=== PATIENT | female | born 1945 | race Caucasian/White ===

== ENCOUNTER 2019-03-13 07:51 | Day surgery (SDC) | payer MEDICARE ==
[2019-03-13] MEDS ORDERED: Sodium Chloride 0.9% 1,000 ML IV SCH (08:30)
[2019-03-13] MEDS ORDERED: fentaNYL 100 MCG/2 ML SDV ONE ×2 (09:30→09:33)
[2019-03-13] MEDS ORDERED: Midazolam 1 MG/ML 2 ML SDV ONE (09:31)
[2019-03-13] MEDS ORDERED: Propofol 200 MG/20 ML SDV ONE ×2 (09:31→09:33)
--- NOTE | 2019-03-13 14:50 | OR ---
DATE OF PROCEDURE: 03/13/2019 SURGEON: Christian Hudson MD PROCEDURES: 1. EGD. 2. Colonoscopy. FINDINGS: 1. Normal EGD, except very mild gastritis. 2. Colon polyp, sigmoid colon polyp, approximately 5 mm, completely removed using snare. 3. Diverticulosis, very mild, limited to sigmoid colon. 4. No evidence of old or new blood. RISKS: Risks, benefits, alternatives, and limitations including, but not limited to infection, bleeding, and perforation were explained to the patient, who wished to proceed. PROCEDURE IN DETAIL: The patient was placed in left lateral decubitus position. The EGD scope was introduced and advanced atraumatically into the second part of the duodenum. No evidence of duodenitis or ulceration. The scope was then brought back in the stomach and retroflexed. No hiatal hernia. Gastritis would be described as very mild. No evidence of ulceration or abnormality. The GE junction was normal. The esophagus was normal. Digital rectal exam was performed next, which showed small external hemorrhoidal tag. The scope was then introduced and advanced atraumatically to the appendiceal orifice, which a photo was taken of this. The scope was brought back through the ascending, transverse, descending colon, and retroflexed. Within the sigmoid colon itself, there was an approximately 5 mm polyp. This was completely removed using snare. No abnormal bleeding was noted after this. The diverticulosis would be described as very mild, mostly limited to sigmoid colon, without evidence of diverticulitis or bleeding. No evidence of colitis. No old or new blood. No abnormalities on retroflexion. The patient tolerated the procedure well. Christian Hudson MD /[id number]
== END 2019-03-13 11:14 | disposition home or self-care (01) ==
LOC: JP.SDS 07:51
PROVIDERS: ATTEND Surgery
DX: D64.9 Anemia, unspecified (principal); D12.5 Benign neoplasm of sigmoid colon; K29.70 Gastritis, unspecified, without bleeding; K57.30 Diverticulosis of large intestine without perforation or abscess without bleeding
CPT/HCPCS: 43235; 45385; J2704; J3010; J7030; 88305; J2250

== ENCOUNTER 2020-03-21 14:27 | Emergency (ER) | payer MEDICARE ==
--- NOTE | 2020-03-21 15:39 | EDM.PDOC ---
ED HPI GENERAL MEDICAL PROBLEM - General Chief Complaint: ENT Problem Stated Complaint: PIECE OF CHICKEN STUCK IN THROAT Time Seen by Provider: 03/21/20 15:20 Source of Information: Reports: Patient, Family, RN Notes Reviewed History Limitations: Reports: No Limitations - History of Present Illness INITIAL COMMENTS - FREE TEXT/NARRATIVE: Tasia presents to the emergency room for complaints of food bolus that happened at 1230 today after eating a piece of chicken. She denies any other injury or trauma. She denies any SOB, difficulty breathing or other concerns. She denies fever, chills, nausea, vomiting or other concerns. Upon arrival to the emergency room and upon rooming, Tasia was provided Coca Cola to drink, food bolus resolved. - Related Data Allergies Allergy/AdvReac Type Severity Reaction Status Date / Time No Known Allergies Allergy Verified 03/21/20 14:53 Home Meds: Home Meds Levothyroxine Sodium [Synthroid] 100 mcg PO DAILY 01/23/19 [History] Losartan/Hydrochlorothiazide [Hyzaar 100-25 Tablet] 25 - 100 each PO DAILY 01/23/19 [History] carvediloL [Coreg] 6.25 mg PO BID 01/23/19 [History] Furosemide [Lasix] 1 tab PO DAILY PRN 03/21/20 [History] Past Medical History HEENT History: Reports: Impaired Vision Cardiovascular History: Reports: Hypertension Gastrointestinal History: Reports: Other (See Below) Other Gastrointestinal History: 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: , Spontaneous Musculoskeletal History: Reports: Arthritis, Other (See Below) Other Musculoskeletal History: RIGHT HIP PAIN Endocrine/Metabolic History: Reports: Hypothyroidism Other Endocrine/Metabolic History: TOOK A PILL TO DESTROY THYROID Hematologic History: Reports: Anemia - Infectious Disease History Infectious Disease History: Reports: Chicken Pox, Measles, Mumps - Past Surgical History GI Surgical History: Reports: Cholecystectomy, Colonoscopy, EGD Social & Family History - Family History Family Medical History: Noncontributory - Tobacco Use Tobacco Use Status *Q: Never Tobacco User - Caffeine Use Caffeine Use: Reports: Coffee ED ROS ENT - Review of Systems Review Of Systems: See Below Constitutional: Reports: No Symptoms HEENT: Reports: Other (chicken food bolus to throat, started at 1230 today. She reports this has happened 6 times in the past 6 months, but each time usually resolves at home. Today the chicken would not go down. ). Denies: Throat Pain Respiratory: Reports: No Symptoms Cardiovascular: Reports: No Symptoms : Reports: No Symptoms Musculoskeletal: Reports: No Symptoms Skin: Reports: No Symptoms Neurological: Reports: No Symptoms Psychiatric: Reports: No Symptoms Hematologic/Lymphatic: Reports: No Symptoms Immunologic: Reports: No Symptoms ED EXAM, ENT - Physical Exam Exam: See Below Exam Limited By: No Limitations General Appearance: Alert, WD/WN, No Apparent Distress Eye Exam: Bilateral Eye: Normal Inspection, PERRL Ears: Normal External Exam, Normal Canal, Hearing Grossly Normal, Normal TMs Nose: Normal Inspection, Normal Mucousa, No Blood Mouth/Throat: Normal Inspection, Normal Gums, Normal Lips, Normal Oropharynx, Other (chicken food bolus, resolved with sips of Coca cola. No pain to throat. Able to swallow water without any issues. ). No: Lip Swelling, Muffled Voice, Oral Ulcers, Peritonsillar Mass, Throat Pain, Throat Swelling, Tongue Swelling, Tonsillar Erythema, Tonsillar Exudates, Tonsillar Swelling, Uvular Deviation, Uvular Edema Head: Atraumatic, Normocephalic Neck: Normal Inspection, Supple, Non-Tender, Full Range of Motion. No: Lymphadenopathy (R), Lymphadenopathy (L), Thyromegaly Respiratory/Chest: No Respiratory Distress, Lungs Clear, Normal Breath Sounds, No Accessory Muscle Use, Chest Non-Tender. No: Crackles, Rales, Rhonchi, Wheezing Cardiovascular: Normal Peripheral Pulses, Regular Rate, Rhythm, No Edema, No Gallop, No Murmur, No Rub Back: Normal Inspection, Full Range of Motion. No: CVA Tenderness (R), CVA Tenderness (L) Extremities: Normal Inspection, Normal Range of Motion, Non-Tender, No Pedal Edema, Normal Capillary Refill Neurological: Alert, Oriented, Normal Cognition, Normal Gait, Normal Reflexes, No Motor/Sensory Deficits Psychiatric: Normal Affect, Normal Mood Skin: Warm, Dry, Intact, Normal Color, No Rash Lymphatic: No Adenopathy Course - Vital Signs Last Recorded V/S: Last Vital Signs Temp 36.3 C 03/21/20 15:00 Pulse 87 03/21/20 15:34 Resp 17 03/21/20 15:00 BP 185/94 H 03/21/20 15:34 Pulse Ox 96 03/21/20 15:00 - Re-Assessments/Exams Free Text/Narrative Re-Assessment/Exam: blood pressure elevated, reviewed with patient. She states she feels a little stressed. She denies headaches, change in vision or other concerns. Departure - Departure Time of Disposition: 15:36 Disposition: Home, Self-Care 01 Condition: Good Clinical Impression: Bolus impaction of digestive tract - Discharge Information *PRESCRIPTION DRUG MONITORING PROGRAM REVIEWED*: Not Applicable *COPY OF PRESCRIPTION DRUG MONITORING REPORT IN PATIENT TROY: Not Applicable Instructions: Swallowed Foreign Body, Adult, [id number] Referrals: Harry Nowak, TRAVEL REGISTERED NURSE ICU [Primary Care Provider] - Forms: ED Department Discharge Additional Instructions: You have been evaluated and treated for a food bolus of chicken to the esophagus with resolution after sipping Coca Cola. No pain or further obstruction noted after resolution. Eat softer foods, smaller bites and chew food well with eating. Follow up with Harry Nowak TRAVEL REGISTERED NURSE ICU in the next 3 to 7 days for follow up and referral for EGD to examine the throat. You may take acetaminophen as needed for any pain. Return at any time for any worsening, issues or concerns. Sepsis Event Note (ED) - Evaluation Sepsis Screening Result: No Definite Risk - Focused Exam Vital Signs: Vital Signs Temp Pulse Resp BP Pulse Ox 03/21/20 15:34 87 185/94 H 03/21/20 15:00 36.3 C 118 H 17 193/96 H 96 03/21/20 14:40 36.3 C 118 H 17 193/96 H 96 - Assessment/Plan Assessment:: Bolus impaction of digestive tract Chicken stuck at 1230, resolved in emergency room with sips of Coca Cola. She is advised to follow up with primary and obtain a referral for EGD. Return for any worsening. Plan: Patient evaluated and treated for a food bolus of chicken to the esophagus with resolution after sipping Coca Cola. No pain or further obstruction noted after resolution. Eat softer foods, smaller bites and chew food well with eating. Follow up with Harry Nowak TRAVEL REGISTERED NURSE ICU in the next 3 to 7 days for follow up and referral for EGD to examine the throat. She may take acetaminophen as needed for any pain. Return at any time for any worsening, issues or concerns.
== END 2020-03-21 15:46 | disposition home or self-care (01) ==
LOC: JP.ED 14:27
DX: T17.228A Food in pharynx causing other injury, initial encounter (principal); I10 Essential (primary) hypertension; E03.9 Hypothyroidism, unspecified; Z90.49 Acquired absence of other specified parts of digestive tract; Z79.899 Other long term (current) drug therapy
CPT/HCPCS: 99283

== ENCOUNTER 2020-04-09 06:21 | Day surgery (SDC) | payer MEDICARE ==
[2020-04-09] MEDS ORDERED: Sodium Chloride 0.9% 1,000 ML IV SCH (07:00)
[2020-04-09] MEDS ORDERED: fentaNYL 100 MCG/2 ML SDV ONE (07:13)
[2020-04-09] MEDS ORDERED: Propofol 200 MG/20 ML SDV ONE (07:13)
--- NOTE | 2020-04-09 12:48 | OR ---
DATE OF PROCEDURE: 04/09/2020 SURGEON: Christian Hudson MD PROCEDURE: Esophagogastroduodenoscopy. FINDINGS: Hiatal hernia, approximately 6 cm. COMPLICATIONS: None. IRON MINER BLASTING: None. ANESTHESIA: MAC. PREOPERATIVE DIAGNOSIS: Dysphagia. POSTOPERATIVE DIAGNOSIS: Dysphagia. RISKS: Risks, benefits, alternatives, and limitations including but not limited to infection, bleeding, and perforation were explained to the patient who wished to proceed. PROCEDURE IN DETAIL: The patient was placed in left lateral decubitus position. The EGD scope was introduced and advanced atraumatically into the second part of the duodenum. No evidence of duodenitis or ulceration. No gastritis. The patient was noted to have fairly large hiatal hernia, approximately 4 cm to 6 cm in size. The GE junction was normal. The remainder of esophagus was normal. The patient tolerated the procedure well. Christian Hudson MD /[id number]
== END 2020-04-09 09:06 | disposition home or self-care (01) ==
LOC: JP.SDS 06:21
PROVIDERS: ATTEND Surgery
DX: R13.10 Dysphagia, unspecified (principal); K44.9 Diaphragmatic hernia without obstruction or gangrene
CPT/HCPCS: 43235; J2704; J3010; J7030

== ENCOUNTER 2020-07-05 15:38 | Day surgery (SDC) | payer MEDICARE ==
--- NOTE | 2020-07-05 16:27 | EDM.PDOC ---
ED HPI GENERAL MEDICAL PROBLEM - General Chief Complaint: ENT Problem Stated Complaint: something lodged in throat Time Seen by Provider: 07/05/20 16:10 Source of Information: Reports: Patient, Family History Limitations: Reports: No Limitations - History of Present Illness INITIAL COMMENTS - FREE TEXT/NARRATIVE: 74-year-old female with a esophageal impaction since 1 PM, about 4-1/2 hours ago. This is happened to her in the past which she has been doing well over the past several months. She did have a surgical consult for a hiatal hernia in June but canceled the appointment. No fevers or chills, she has persistent vomiting of anything she tries to drink because she cannot pass it into her stomach. Onset: Sudden Duration: Hour(s): (Just over 4 hours ago) Associated Symptoms: Reports: Nausea/Vomiting. Denies: Fever/Chills, Shortness of Breath, Syncope, Weakness Throat Pain Score (Numeric/FACES): 5 - Related Data Allergies Allergy/AdvReac Type Severity Reaction Status Date / Time No Known Allergies Allergy Verified 07/05/20 16:14 Home Meds: Home Meds Levothyroxine Sodium [Synthroid] 100 mcg PO DAILY 01/23/19 [History] Losartan/Hydrochlorothiazide [Hyzaar 100-25 Tablet] 25 - 100 each PO DAILY 01/23/19 [History] carvediloL [Coreg] 6.25 mg PO BID 01/23/19 [History] Furosemide [Lasix] 20 mg PO DAILY 03/21/20 [History] Past Medical History HEENT History: Reports: Impaired Vision, Macular Degeneration Cardiovascular History: Reports: Hypertension Gastrointestinal History: Reports: Cholelithiasis, Other (See Below) Other Gastrointestinal History: 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: , Spontaneous Musculoskeletal History: Reports: Arthritis, Other (See Below) Other Musculoskeletal History: RIGHT HIP PAIN Psychiatric History: Reports: Depression Endocrine/Metabolic History: Reports: Hypothyroidism, Obesity/BMI 30+ Other Endocrine/Metabolic History: TOOK A PILL TO DESTROY THYROID Hematologic History: Reports: Anemia, Blood Transfusion(s) - Infectious Disease History Infectious Disease History: Reports: Chicken Pox, Measles, Mumps - Past Surgical History HEENT Surgical History: Reports: None Cardiovascular Surgical History: Reports: None GI Surgical History: Reports: Cholecystectomy, Colonoscopy, EGD Endocrine Surgical History: Reports: None Musculoskeletal Surgical History: Reports: None Social & Family History - Family History Family Medical History: No Pertinent Family History - Tobacco Use Tobacco Use Status *Q: Never Tobacco User Second Hand Smoke Exposure: No - Caffeine Use Caffeine Use: Reports: Coffee - Recreational Drug Use Recreational Drug Use: No ED ROS ENT - Review of Systems Review Of Systems: See Below Constitutional: Reports: Malaise. Denies: Fever, Chills HEENT: Reports: No Symptoms Respiratory: Denies: Shortness of Breath Cardiovascular: Denies: Chest Pain GI/Abdominal: Reports: Nausea, Vomiting. Denies: Abdominal Pain Skin: Reports: No Symptoms Neurological: Reports: No Symptoms ED EXAM, ENT - Physical Exam Exam: See Below Exam Limited By: No Limitations General Appearance: Alert, Anxious Eye Exam: Bilateral Eye: Normal Inspection Head: Atraumatic Respiratory/Chest: No Respiratory Distress, Lungs Clear Cardiovascular: Regular Rate, Rhythm GI/Abdominal: Soft, Non-Tender Neurological: Alert, Oriented Course - Vital Signs Last Recorded V/S: Last Vital Signs Temp 97.2 F 07/05/20 18:18 Pulse 79 07/05/20 18:18 Resp 16 07/05/20 18:18 BP 139/67 07/05/20 18:18 Pulse Ox 98 07/05/20 18:18 - Orders/Labs/Meds Labs: Laboratory Tests 07/05/20 Range/Units 16:19 SARS CoV-2 RNA Rapid HUNG Negative Meds: Medications Discontinued Medications Generic Name Dose Route Start Last Admin Trade Name Luis PRN Reason Stop Dose Admin Fentanyl Confirm 07/05/20 16:42 Sublimaze Administered 07/05/20 16:43 Dose 100 mcg .ROUTE .STK-MED ONE Sodium Chloride 1,000 mls @ 500 mls/hr 07/05/20 16:30 Normal Saline IV ASDIRECTED IVY Propofol Confirm 07/05/20 16:42 Diprivan 20 Ml Administered 07/05/20 16:43 Dose 200 mg .ROUTE .STK-MED ONE - Re-Assessments/Exams Free Text/Narrative Re-Assessment/Exam: 07/05/20 16:27 A coronavirus screen will be done preprocedure and Dr. Hudson was called to consider an EGD. He kindly agreed to see the patient. Normal saline at 500 cc an hour was started. 07/05/20 17:52 Patient returned from her procedure stable, hamburger impaction was removed from the esophagus by Dr. Hudson. Patient is to be on liquids for 5 days, advancing slowly and follow-up with Dr. Hudson in the near future. She should call the clinic to make an appointment. Departure - Departure Time of Disposition: 18:23 Disposition: Home, Self-Care 01 Clinical Impression: Impacted esophageal foreign body Qualifiers: Encounter type: initial encounter Qualified Code(s): T18.108A - Unspecified foreign body in esophagus causing other injury, initial encounter - Discharge Information Instructions: Swallowed Foreign Body, Adult, [id number] Referrals: Harry Nowak EVENT OPERATIONS MANAGER [Primary Care Provider] - Forms: ED Department Discharge Care Plan Goals: Dr. Hudson recommended liquids for 5 days, and call the clinic in the next couple of days to make an appointment for follow-up to discuss future treatment. Return anytime if symptoms recur. Sepsis Event Note (ED) - Evaluation Sepsis Screening Result: No Definite Risk
[2020-07-05] MEDS ORDERED: Sodium Chloride 0.9% 1,000 ML IV SCH (16:30)
[2020-07-05] MEDS ORDERED: fentaNYL 100 MCG/2 ML SDV ONE (16:42)
[2020-07-05] MEDS ORDERED: Propofol 200 MG/20 ML SDV ONE (16:42)
--- NOTE | 2020-07-06 07:50 | OR ---
DATE OF PROCEDURE: 07/05/2020 SURGEON: Christian Hudson MD PROCEDURE: Esophagogastroduodenoscopy with removal of foreign body. COMPLICATIONS: None. MOBILE HOMES REPAIRER: None. ANESTHESIA: MAC. PREOPERATIVE DIAGNOSIS: Epigastric pain/dysphagia. POSTOPERATIVE DIAGNOSIS: Epigastric pain/dysphagia. RISK: Risks, benefits, alternatives, and limitations including, but not limited to infection, bleeding, and perforation were explained to the patient's family, and they wished to proceed. PROCEDURE IN DETAIL: The patient was placed in the left lateral decubitus position. The EGD scope was introduced and advanced atraumatically. Within the esophagus, foreign material consistent with fluid was noted. This was able to be pushed into the stomach. The patient tolerated the procedure well. The scope was then removed. The air was removed. The patient tolerated the procedure well. No evidence of aspiration. Christian Hudson MD /[id number]
== END 2020-07-05 18:23 | disposition home or self-care (01) ==
LOC: JP.ED 15:38 → JP.SDS 16:30 → JP.ED 18:23 → JP.SDS 18:23
PROVIDERS: ATTEND Surgery
DX: T18.108A Unspecified foreign body in esophagus causing other injury, initial encounter (principal); I10 Essential (primary) hypertension; E03.9 Hypothyroidism, unspecified; E66.9 Obesity, unspecified; Z01.812 Encounter for preprocedural laboratory examination; Z20.822 Contact with and (suspected) exposure to COVID-19; Z79.899 Other long term (current) drug therapy; Z90.49 Acquired absence of other specified parts of digestive tract; Z68.31 Body mass index [BMI] 31.0-31.9, adult
CPT/HCPCS: 43247; 99284; J2704; J3010; U0002

== ENCOUNTER 2020-07-15 10:17 | Day surgery (SDC) | payer MEDICARE ==
[~2020-07-15 10:17] MED LIST: Bupivacaine 0.5% 50 ML MDV ONE; Dexamethasone 4 MG/ML SDV ONE; Glycopyrrolate 0.2 MG/ML 5 ML MDV ONE; Lidocaine 1% with EPINEPHrine 1:100,000 50 ML MDV ONE; Neostigmine Methylsulfate 1 MG/ML 5 ML Syringe ONE; Ondansetron 4 MG/2 ML SDV ONE; Propofol 200 MG/20 ML SDV ONE; Rocuronium 50 MG/5 ML Vial ONE; Succinylcholine 200 MG/10 ML MDV ONE; fentaNYL 250 MCG/5 ML SDV ONE
[2020-07-15] MEDS ORDERED: Lidocaine 1% with EPINEPHrine 1:100,000 50 ML MDV ONE (10:27)
[2020-07-15] MEDS ORDERED: Bupivacaine 0.5% 50 ML MDV ONE (10:27)
[2020-07-15] MEDS: Sodium Chloride 0.9% 1,000 ML IV SCH ×2 (11:09→14:28)
[2020-07-15] MEDS ORDERED: ceFAZolin 2 GM in Premix Bag 1 BAG IV ONE (12:00)
[2020-07-15] MEDS ORDERED: metroNIDAZOLE/Normal Saline 500 MG in Premix Bag 1 BAG IV ONE (12:00)
[2020-07-15] MEDS ORDERED: fentaNYL 250 MCG/5 ML SDV ONE (12:12)
[2020-07-15] MEDS ORDERED: Ropivacaine 38 ML, dexAMETHasone 8 MG, EPINEPHrine 0.4 MG, Sodium Chloride 0.9% 39.6 ML NERVRT SCH ×4 (12:15)
[2020-07-15] MEDS ORDERED: Labetalol 20 MG/4 ML Syringe ONE (12:17)
[2020-07-15] MEDS ORDERED: fentaNYL 100 MCG/2 ML SDV IVPUSH PRN (13:18)
[2020-07-15] MEDS ORDERED: Benzocaine/Cetylpyridinium/Menthol Lozenge MUCMEM PRN ×2 (13:18)
[2020-07-15] MEDS ORDERED: diphenhydrAMINE 50 MG/ML SDV IVPUSH PRN (13:18)
[2020-07-15] MEDS ORDERED: hydrOXYzine HCL 100 MG/2 ML SDV IM PRN (13:18)
[2020-07-15] MEDS ORDERED: Ketorolac 30 MG/ML SDV IVPUSH PRN (13:18)
[2020-07-15] MEDS ORDERED: Bisacodyl 5 MG Tab PO PRN (13:18)
[2020-07-15] MEDS ORDERED: Ondansetron 4 MG Tab.DIS PO PRN (13:18)
[2020-07-15] MEDS ORDERED: hydrALAZINE 20 MG/ML SDV ONE (13:41)
[2020-07-15] MEDS: Ondansetron 4 MG/2 ML SDV IVPUSH PRN (15:40)
[2020-07-15] MEDS: ceFAZolin 2 GM in Premix Bag 1 BAG IV SCH (17:51)
[2020-07-15] MEDS: Acetaminophen/HYDROcodone 325-10 MG Tab PO PRN (19:47)
[2020-07-16] MEDS: ceFAZolin 2 GM in Premix Bag 1 BAG IV SCH (01:50)
[2020-07-16] MEDS: Sodium Chloride 0.9% 1,000 ML IV SCH (01:53)
[2020-07-16] MEDS: Acetaminophen/HYDROcodone 325-10 MG Tab PO PRN ×2 (02:46→12:14)
[2020-07-16] MEDS ORDERED: Iopamidol 612 MG/ML 50 ML SDV PO STA (03:00)
[2020-07-16] MEDS: Ondansetron 4 MG/2 ML SDV IVPUSH PRN (03:36)
[2020-07-16] MEDS ORDERED: Sodium Chloride 0.9% 250 ML IV SCH (06:15)
[2020-07-16] MEDS ORDERED: Scopolamine 1.5 MG Transdermal Patch TOP SCH (09:00)
--- NOTE | 2020-07-16 09:43 | OR ---
DATE OF PROCEDURE: 07/15/2020 SURGEON: Christian Hudson MD PROCEDURE: Laparoscopic Sonido fundoplication with mesh placement. COMPLICATIONS: None. FINISHING RANGE SUPERVISOR: None. ANESTHESIA: General. RISKS: Risks, benefits, alternatives, and limitations including, but not limited to, infection, bleeding, injury to esophagus, stomach, pneumohemothorax, hematoma, seroma, failure, and other risks not listed here were explained to the patient who wished to proceed. Also, explained my experience with this procedure. PROCEDURE IN DETAIL: The patient was placed in supine position. A 15 cm inferior and 5 cm the left of the xiphoid process, a single 10 mm incision was made. Veress needle was used to enter the abdomen without abnormality and a drop test was performed without abnormality. The abdomen was subsequently insufflated. An Optiview trocar was inserted, no evidence of enterotomy or injuries noted. Additional 5 mm ports were placed in the left lower quadrant in the left subcostal margin, at the xiphoid area, and in the right subcostal margin, all under direct visualization. The hiatal hernia was identified and was noted to be quite large with the majority of the stomach noted within the hernia itself. Blunt dissection was begun at the phrenoesophageal ligament and on the right side concentrating around the area of the right denise. This blunt dissection continued, and eventually, the sac was able to be mobilized on the right side. For the next 30 minutes, sac mobilization continued. This was eventually to be and would be transected in the middle of this case. The sac would not be sent to pathology as it appeared benign. This blunt dissection then continued until the left denise was identified. The second part of the operation was then commenced with addressing the short gastrics. Two blue clamps were used to elevate the stomach and greater omentum. The lesser sac was entered and Harmonic Scalpel was used to dissect up into the splenogastric ligament which was also transected. This allowed good mobilization of the stomach. The sac was then further completely mobilized in the left aspect. The [place] drain was able to be passed behind the stomach. The left and right denise were readily identified. Of note, the vagus nerves had been identified during this procedure and not interacted with any way except for identification purposes. Of note, posterior nerve would not be incorporated within lap. The hiatal hernia was then repaired with 2 posterior, 1 anterior sutures grafted with good amounts of left and right denise. The mesh would then be placed in a posterior location and tacked into place. The wrap was then commenced by grafting the gastric cardia, transferring it posteriorly and then a shoeshine maneuver would be performed. Once this is complete, this was then sutured with Vicryl in an interrupted fashion x2. This was performed over 60-Occitan bougie. The area was inspected for leak or injury, none was noted. The esophagus due to its dense adhesion on anterior aspect with respect to the sac itself 8 mL Tisseel was placed upon this. The abdomen was irrigated. The EGD scope was introduced in the esophagus and stomach inspected without abnormality. The air and liquid were then removed. The wounds were closed with 3-0 Vicryl and 4-0 Vicryl interrupted running fashion. Wounds were closed with 3-0 Vicryl, 4-0 Vicryl, and Dermabond was applied. The patient tolerated the procedure well. Christian Hudson MD /[id number]
--- NOTE | 2020-07-16 09:43 | OR ---
DATE OF PROCEDURE: 07/15/2020 SURGEON: Christian Hudson MD PROCEDURE: Transversus abdominis plane blocks bilaterally. COMPLICATIONS: None. HISTORIOGRAPHER: None. RISKS: Risks, benefits, alternatives, and limitations including, but not limited to infection, bleeding, and injury to abdominal structures were explained to the patient who wished to proceed. PROCEDURE IN DETAIL: The patient was placed in supine position. The left transversus plane was identified first. This was accessed using a 13 megahertz ultrasound probe and a 21- gauge needle. The other side was then performed in same manner, same fashion, same technique, in the same sequence and using the same equipment. The patient tolerated the procedure well. Christian Hudson MD /[id number]
--- NOTE | 2020-07-16 09:53 | PN ---
DATE OF SERVICE: 07/16/2020 SUBJECTIVE: The patient is doing very well. Pain is well controlled. No nausea, vomiting, shortness of breath, or chest pain. OBJECTIVE: VITAL SIGNS: Stable. CARDIOVASCULAR: Regular rhythm and rate. RESPIRATORY: Lungs are clear to auscultation bilaterally. ABDOMEN: Bowel sounds are positive. The incision is healing well. ASSESSMENT: Status post laparoscopic Sonido. PLAN: The patient will be discharged today. Please see discharge summary for further details. Christian Hudson MD /[id number]
--- NOTE | 2020-07-16 10:18 | CR ---
UGI Limited HISTORY: Post Osnido procedure surgery FINDINGS: Patient swallowed water-soluble contrast. Upright views of the abdomen show no evidence of extravasation or obstruction. IMPRESSION: Status post Sonido procedure surgery No extravasation or obstruction seen
--- NOTE | 2020-07-16 10:48 | DISCH ---
DISCHARGE DIAGNOSIS: Status post laparoscopic Sonido. SUMMARY OF HOSPITAL COURSE: Pleasant 74-year-old female who was on observation status after laparoscopic Sonido. Prior to discharge, her pain is well controlled. No vomiting, shortness of breath, chest pain. Tolerating diet. FOLLOWUP: With Surgery in 7 to 14 days. ACTIVITY: No lifting greater than 30 pounds x30 days. Resume all medications. [place] for additional pain. Complications during this hospitalization, none /[id number]
== END 2020-07-16 13:30 | disposition home or self-care (01) ==
LOC: JP.SDS 10:17 → JP.MS 13:18 → JP.SDS 07-16 13:30
PROVIDERS: ATTEND Surgery
DX: K44.9 Diaphragmatic hernia without obstruction or gangrene (principal); K21.9 Gastro-esophageal reflux disease without esophagitis; I10 Essential (primary) hypertension; E03.9 Hypothyroidism, unspecified; Z98.890 Other specified postprocedural states; Z79.899 Other long term (current) drug therapy; Z88.8 Allergy status to other drugs, medicaments and biological substances; Z79.890 Hormone replacement therapy
CPT/HCPCS: 36415; 74240; 74240-26; 80048; 85027; A9270-GY; C1713; C1776; J0171; J0330; J0360; J0690; J1100; J1885; J2405; J2704; J2710; J2795; J3010; J3490; J7030; J7050; Q9967

== ENCOUNTER 2021-04-13 09:58 | Emergency (ER) | payer MEDICARE ==
[2021-04-13 11:31] LABS: CORONAVIRUS COVID-19 NAA POSITIVE (NEGATIVE)
--- NOTE | 2021-04-13 12:11 | EDM.PDOC ---
ED HPI GENERAL MEDICAL PROBLEM - General Chief Complaint: General Stated Complaint: POSSIBLE COVID Time Seen by Provider: 04/13/21 11:56 Source of Information: Reports: Patient, RN Notes Reviewed History Limitations: Reports: No Limitations - History of Present Illness INITIAL COMMENTS - FREE TEXT/NARRATIVE: 75-year-old female presents emergency department today complaint of body aches fatigue has had some fevers at home did have a Covid exposure about 2 weeks prior she has had symptoms for about a week and a half is unvaccinated - Related Data Allergies Allergy/AdvReac Type Severity Reaction Status Date / Time pramipexole Allergy Chest Verified 04/13/21 10:37 Tightness Home Meds: Home Meds carvediloL [Coreg] 6.25 mg PO BID 01/23/19 [History] Levothyroxine Sodium [Levothyroxine] 100 mcg PO DAILY 07/15/20 [History] Past Medical History HEENT History: Reports: Impaired Vision, Macular Degeneration Cardiovascular History: Reports: Hypertension Gastrointestinal History: Reports: Cholelithiasis, GERD, Other (See Below) Other 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: , Spontaneous Musculoskeletal History: Reports: Arthritis Other Musculoskeletal History: RIGHT HIP PAIN Neurological History: Reports: None Psychiatric History: Reports: Depression, Panic Attack Endocrine/Metabolic History: Reports: Hypothyroidism, Obesity/BMI 30+ Other Endocrine/Metabolic History: TOOK A PILL TO DESTROY THYROID Hematologic History: Reports: Anemia, Blood Transfusion(s) Immunologic History: Reports: None Oncologic (Cancer) History: Reports: None Dermatologic History: Reports: None - Infectious Disease History Infectious Disease History: Reports: Chicken Pox, Measles, Mumps - Past Surgical History GI Surgical History: Reports: Cholecystectomy, Colonoscopy, EGD Neurological Surgical History: Reports: None Social & Family History - Family History Family Medical History: No Pertinent Family History HEENT: Reports: Macular Degeneration Cardiac: Reports: IN Respiratory: Reports: None GI: Reports: None : Reports: None OBGYN: Reports: None Musculoskeletal: Reports: None Neurological: Reports: None Psychiatric: Reports: None Endocrine/Metabolic: Reports: None Hematologic: Reports: None Immunologic: Reports: None Dermatologic: Reports: None Oncologic: Reports: None - Tobacco Use Tobacco Use Status *Q: Never Tobacco User - Caffeine Use Caffeine Use: Reports: Coffee Caffeine Use Comment: 5 cups/daily - Recreational Drug Use Recreational Drug Use: No ED ROS GENERAL - Review of Systems Review Of Systems: See Below Constitutional: Reports: Fever, Weakness, Fatigue HEENT: Reports: No Symptoms Respiratory: Reports: Shortness of Breath, Cough Cardiovascular: Reports: Dyspnea on Exertion GI/Abdominal: Reports: No Symptoms ED EXAM, GENERAL - Physical Exam Exam: See Below Exam Limited By: No Limitations General Appearance: Alert, WD/WN, No Apparent Distress Respiratory/Chest: No Respiratory Distress, Lungs Clear, Normal Breath Sounds, No Accessory Muscle Use, Chest Non-Tender Cardiovascular: Regular Rate, Rhythm, No Murmur GI/Abdominal: Soft, Non-Tender Course - Vital Signs Last Recorded V/S: Last Vital Signs Temp 100.0 F 04/13/21 10:33 Pulse 93 04/13/21 10:33 Resp 16 04/13/21 10:33 BP 145/78 H 04/13/21 10:33 Pulse Ox 94 L 04/13/21 10:33 - Orders/Labs/Meds Orders: Active Orders 24 hr Category Date Time Status Isolation [COMM] Stat Oth 04/13/21 10:17 Ordered Labs: Laboratory Tests 04/13/21 Range/Units 10:40 Influenza Type A RNA Negative (NEGATIVE) RSV RNA (INAAT) Negative (NEGATIVE) Influenza Type B RNA Negative (NEGATIVE) SARS-CoV-2 RNA (HUNG) Positive H (NEGATIVE) Departure - Departure Time of Disposition: 12:10 Disposition: Home, Self-Care 01 Condition: Fair Clinical Impression: COVID-19 - Discharge Information Instructions: 10 Things You Can Do to Manage Your COVID-19 Symptoms at Home - [facility] (12/17/2020) Referrals: Harry Nowak NP [Primary Care Provider] - Additional Instructions: Continue to use Tylenol or Motrin as needed for symptomatic relief, please followup with your primary care provider in 7-10 days if not better, please call return to the emergency department with worsening of symptoms. Sepsis Event Note (ED) - Evaluation Sepsis Screening Result: No Definite Risk - Focused Exam Vital Signs: Vital Signs Temp Pulse Resp BP Pulse Ox 04/13/21 10:33 100.0 F 93 16 145/78 H 94 L - My Orders Last 24 Hours: My Active Orders 04/13/21 10:17 Isolation [COMM] Stat - Assessment/Plan Last 24 Hours: My Active Orders 11/10/21 10:17 Isolation [COMM] Stat Plan: Assessment Acuity = acute Site and laterality = viral syndrome Etiology = COVID-19 Manifestations = dyspnea Location of injury = Home Lab values = COVID-19 positive influenza AandB negative RSV negative Plan She is not hypoxic at this time I think she is greater than 10 days first symptom onset therefore she is not a candidate of the monoclonal antibody therapy, symptomatic care at this time follow-up primary care as needed This note was dictated using [employer] voice recognition software please call with any questions on syntax or grammar.
== END 2021-04-13 12:34 | disposition home or self-care (01) ==
LOC: JP.ED 09:58
DX: U07.1 COVID-19 (principal); E03.9 Hypothyroidism, unspecified; I10 Essential (primary) hypertension; E66.9 Obesity, unspecified; Z68.29 Body mass index [BMI] 29.0-29.9, adult; Z88.8 Allergy status to other drugs, medicaments and biological substances; Z79.899 Other long term (current) drug therapy
CPT/HCPCS: 0241U; 99284

== ENCOUNTER 2021-04-16 15:09 | Inpatient (IN) | payer MEDICARE ==
--- NOTE | 2021-04-16 16:33 | EDM.PDOC ---
ED HPI GENERAL MEDICAL PROBLEM - General Chief Complaint: General Stated Complaint: DEHYDRATED/WEAK Time Seen by Provider: 04/16/21 16:15 Source of Information: Reports: Patient, Old Records, RN History Limitations: Reports: No Limitations - History of Present Illness INITIAL COMMENTS - FREE TEXT/NARRATIVE: 75 yo female at about day #12 of her Covid infection presents with weakness, cough, mild diarrhea after eating, and mild SOB. Her family is concerned she may be dehydrated. Has not been into her primary during this illness. Was not vaccinated for Covid. Onset: Gradual Onset Date: 04/05/21 Duration: Day(s): (12), Getting Worse Location: Reports: Generalized Quality: Reports: Ache Severity: Mild Improves with: Reports: Rest Worsens with: Reports: Other (more SOB with exertion) Context: Reports: Other (See HPI) Associated Symptoms: Reports: Cough, Shortness of Breath, Other (diarrhea last 2 days. 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: , Spontaneous Musculoskeletal History: Reports: Arthritis Other Musculoskeletal History: RIGHT HIP PAIN Neurological History: Reports: None Psychiatric History: Reports: Depression, Panic Attack Endocrine/Metabolic History: Reports: Hypothyroidism, Obesity/BMI 30+ Other Endocrine/Metabolic History: TOOK A PILL TO DESTROY THYROID Hematologic History: Reports: Anemia, Blood Transfusion(s) Immunologic History: Reports: None Oncologic (Cancer) History: Reports: None Dermatologic History: Reports: None - Infectious Disease History Infectious Disease History: Reports: Chicken Pox, Measles, Mumps - Past Surgical History GI Surgical History: Reports: Cholecystectomy, Colonoscopy, EGD Neurological Surgical History: Reports: None Social & Family History - Family History Family Medical History: No Pertinent Family History HEENT: Reports: Macular Degeneration Cardiac: Reports: [place] Respiratory: Reports: None GI: Reports: None : Reports: None OBGYN: Reports: None Musculoskeletal: Reports: None Neurological: Reports: None Psychiatric: Reports: None Endocrine/Metabolic: Reports: None Hematologic: Reports: None Immunologic: Reports: None Dermatologic: Reports: None Oncologic: Reports: None - Caffeine Use Caffeine Use: Reports: Coffee Caffeine Use Comment: 5 cups/daily ED ROS GENERAL - Review of Systems Review Of Systems: See Below Constitutional: Reports: Malaise, Weakness HEENT: Reports: No Symptoms Respiratory: Reports: Shortness of Breath, Cough. Denies: Sputum Cardiovascular: Reports: No Symptoms GI/Abdominal: Reports: No Symptoms : Reports: No Symptoms Musculoskeletal: Reports: No Symptoms Skin: Reports: No Symptoms Neurological: Reports: No Symptoms Psychiatric: Reports: No Symptoms ED EXAM, GENERAL - Physical Exam Exam: See Below Exam Limited By: No Limitations General Appearance: Alert, WD/WN, Mild Distress Eye Exam: Bilateral Eye: Normal Inspection Ears: Normal External Exam, Normal Canal, Normal TMs, Hearing Loss Ear Exam: Bilateral Ear: Auricle Normal, Canal Normal, TM normal Nose: Normal Inspection, No Blood Throat/Mouth: Normal Inspection, Normal Lips, Normal Oropharynx, Normal Voice, No Airway Compromise Head: Atraumatic, Normocephalic Neck: Normal Inspection Respiratory/Chest: No Respiratory Distress, No Accessory Muscle Use, Crackles Cardiovascular: Regular Rate, Rhythm, No Edema GI/Abdominal: Soft, Non-Tender Extremities: Normal Inspection Neurological: Alert, Oriented, CN II-XII Intact, Normal Cognition, No Motor/Sensory Deficits Psychiatric: Normal Affect, Normal Mood Skin Exam: Warm, Dry, Intact, Normal Color, No Rash Course - Vital Signs Text/Narrative:: Dr. Hooper called @ 1655h Last Recorded V/S: Last Vital Signs Temp 34.1 C L 04/17/21 02:58 Pulse 57 L 04/17/21 02:58 Resp 16 04/17/21 02:58 BP 111/67 04/17/21 02:58 Pulse Ox 93 L 04/17/21 02:58 - Orders/Labs/Meds Orders: Active Orders 24 hr Category Date Time Status Patient Status [ADT] Routine ADT 04/16/21 18:28 Active Ambulate [RC] QID Care 04/16/21 18:28 Active Height and Weight [RC] DAILY Care 04/16/21 18:28 Active Intake and Output [RC] QSHIFT Care 04/16/21 18:28 Active Notify Provider Vital Signs [RC] ASDIRECTED Care 04/16/21 18:28 Active Oxygen Therapy [RC] PRN Care 04/16/21 18:28 Active Pulse Oximetry [RC] CONTINUOUS Care 04/16/21 18:28 Active Up With Assistance [RC] ASDIRECTED Care 04/16/21 18:28 Active Up to Chair [RC] QID Care 04/16/21 18:28 Active VTE/DVT Education [RC] Per Unit Routine Care 04/16/21 18:28 Active Vital Signs [RC] Q4H Care 04/16/21 18:28 Active 2 Gram Sodium Diet [DIET] Diet 04/16/21 Dinner Active Acetaminophen [TylenoL] Med 04/16/21 18:28 Active 650 mg PO Q4H PRN Enoxaparin [Lovenox] Med 04/16/21 21:00 Active 40 mg SUBCUT BEDTIME Levothyroxine [Synthroid] Med 04/17/21 09:00 Active 100 mcg PO DAILY Ondansetron [Zofran] Med 04/16/21 18:28 Active 4 mg IV Q4H PRN Remdesivir 100 mg Med 04/17/21 18:00 Active Sodium Chloride 0.9% [Normal Saline] 100 ml IV Q24H Sodium Chloride 0.9% [Saline Flush] Med 04/16/21 18:28 Active 10 ml FLUSH ASDIRECTED PRN carvediloL [Coreg] Med 04/17/21 08:00 Active 6.25 mg PO BIDMEALS dexAMETHasone [Decadron] Med 04/16/21 17:45 Active 6 mg IVPUSH Q24H polyethylene glycoL 3350 [MiraLAX] Med 04/16/21 18:28 Active 17 gm PO DAILY PRN Saline Lock Insert [OM.PC] Routine Oth 04/16/21 18:28 Ordered Resuscitation Status Routine Resus Stat 04/16/21 17:38 Ordered Medication Orders Acetaminophen (Acetaminophen 325 Mg Tab) 650 mg PO Q4H PRN PRN Reason: Pain (Mild 1-3)/fever Last Admin: 04/16/21 19:39 Dose: 650 mg Documented by: HARPER Carvedilol (Carvedilol 3.125 Mg Tab) 6.25 mg PO BIDMEALS [facility] Dexamethasone (Dexamethasone 4 Mg/Ml Sdv) 6 mg IVPUSH Q24H IVY Last Admin: 04/16/21 19:38 Dose: 6 mg Documented by: HARPER Enoxaparin Sodium (Enoxaparin 40 Mg/0.4 Ml Syringe) 40 mg SUBCUT BEDTIME IVY Last Admin: 04/16/21 20:55 Dose: Not Given Documented by: Admin: 04/16/21 19:38 Dose: 40 mg Documented by: HARPER Remdesivir 100 mg/ Sodium (Chloride) 100 mls @ 100 mls/hr IV Q24H [facility] Stop: 04/20/21 18:59 Levothyroxine Sodium (Levothyroxine 100 Mcg Tab) 100 mcg PO DAILY [facility] Ondansetron HCl (Ondansetron 4 Mg/2 Ml Sdv) 4 mg IV Q4H PRN PRN Reason: Nausea/Vomiting Last Admin: 04/16/21 19:38 Dose: 4 mg Documented by: HARPER Polyethylene Glycol (Polyethylene Glycol 3350 Powder 17 Gm Packet) 17 gm PO DAILY PRN PRN Reason: Constipation Sodium Chloride (Sodium Chloride 0.9% 10 Ml Syringe) 10 ml FLUSH ASDIRECTED PRN PRN Reason: Keep Vein Open Labs: Laboratory Tests 04/16/21 04/16/21 04/16/21 Range/Units 16:30 16:35 16:35 WBC 4.5 (4.5-11.0) K/uL RBC 4.95 (3.30-5.50) M/uL Hgb 13.9 D (12.0-15.0) g/dL Hct 42.8 (36.0-48.0) % MCV 87 (80-98) fL MCH 28 (27-31) pg MCHC 33 (32-36) % Plt Count 227 (150-400) K/uL D-Dimer, Quantitative (0.0-500.0) ng/mL Sodium 138 L (140-148) mmol/L Potassium 3.4 L (3.6-5.2) mmol/L Chloride 98 L (100-108) mmol/L Carbon Dioxide 33 H (21-32) mmol/L Anion Gap 10.4 (5.0-14.0) mmol/L BUN 18 (7-18) mg/dL Creatinine 0.9 (0.6-1.0) mg/dL Est Cr Clr Drug Dosing 41.40 mL/min Estimated GFR (MDRD) > 60 (>60) Glucose 130 H (74-106) mg/dL Calcium 8.4 L (8.5-10.1) mg/dL Total Bilirubin 0.2 (0.2-1.0) mg/dL Direct Bilirubin 0.08 (0.0-0.2) mg/dL Indirect Bilirubin TNP AST 74 H (15-37) U/L ALT 52 (12-78) U/L Alkaline Phosphatase 48 (46-116) U/L C-Reactive Protein 6.18 H (0.0-0.3) mg/dL Total Protein 7.1 (6.4-8.2) g/dL Albumin 2.8 L (3.4-5.0) g/dL Globulin 4.3 H (2.3-3.5) g/dL Albumin/Globulin Ratio 0.7 L (1.2-2.2) Urine Color (YELLOW) Urine Appearance (CLEAR) Urine pH (5.0-8.0) Ur Specific [place] (1.008-1.030) Urine Protein (NEGATIVE) mg/dL Urine Glucose (UA) (NEGATIVE) mg/dL Urine Ketones (NEGATIVE) mg/dL Urine Occult Blood (NEGATIVE) Urine Nitrite (NEGATIVE) Urine Bilirubin (NEGATIVE) Urine Urobilinogen (0.2-1.0) EU/dL Ur Leukocyte Esterase (NEGATIVE) Urine RBC (0-5) Urine WBC (0-5) Ur Epithelial Cells Amorphous Sediment Urine Bacteria Urine Mucus 04/16/21 04/16/21 Range/Units 16:35 17:29 WBC (4.5-11.0) K/uL RBC (3.30-5.50) M/uL Hgb (12.0-15.0) g/dL Hct (36.0-48.0) % MCV (80-98) fL MCH (27-31) pg MCHC (32-36) % Plt Count (150-400) K/uL D-Dimer, Quantitative 2130.64 H (0.0-500.0) ng/mL Sodium (140-148) mmol/L Potassium (3.6-5.2) mmol/L Chloride (100-108) mmol/L Carbon Dioxide (21-32) mmol/L Anion Gap (5.0-14.0) mmol/L BUN (7-18) mg/dL Creatinine (0.6-1.0) mg/dL Est Cr Clr Drug Dosing mL/min Estimated GFR (MDRD) (>60) Glucose (74-106) mg/dL Calcium (8.5-10.1) mg/dL Total Bilirubin (0.2-1.0) mg/dL Direct Bilirubin (0.0-0.2) mg/dL Indirect Bilirubin AST (15-37) U/L ALT (12-78) U/L Alkaline Phosphatase (46-116) U/L C-Reactive Protein (0.0-0.3) mg/dL Total Protein (6.4-8.2) g/dL Albumin (3.4-5.0) g/dL Globulin (2.3-3.5) g/dL Albumin/Globulin Ratio (1.2-2.2) Urine Color Yellow (YELLOW) Urine Appearance Cloudy A (CLEAR) Urine pH 6.0 (5.0-8.0) Ur Specific [place] 1.020 (1.008-1.030) Urine Protein 100 H (NEGATIVE) mg/dL Urine Glucose (UA) Negative (NEGATIVE) mg/dL Urine Ketones Negative (NEGATIVE) mg/dL Urine Occult Blood Negative (NEGATIVE) Urine Nitrite Negative (NEGATIVE) Urine Bilirubin Negative (NEGATIVE) Urine Urobilinogen 0.2 (0.2-1.0) EU/dL Ur Leukocyte Esterase Small H (NEGATIVE) Urine RBC 0-5 (0-5) Urine WBC 5-10 H (0-5) Ur Epithelial Cells Moderate Amorphous Sediment Few Urine Bacteria Moderate Urine Mucus Few Meds: Medications Generic Name Dose Route Start Last Admin Trade Name Freq PRN Reason Stop Dose Admin Acetaminophen 650 mg 04/16/21 18:28 04/16/21 19:39 Acetaminophen 325 Mg Tab PO 650 mg Q4H PRN Administration Pain (Mild 1-3)/fever Carvedilol 6.25 mg 04/17/21 08:00 Carvedilol 3.125 Mg Tab PO BIDMEALS IVY Dexamethasone 6 mg 04/16/21 17:45 04/16/21 19:38 Dexamethasone 4 Mg/Ml Sdv IVPUSH 6 mg Q24H IVY Administration Enoxaparin Sodium 40 mg 04/16/21 21:00 04/16/21 20:55 Enoxaparin 40 Mg/0.4 Ml Syringe SUBCUT Not Given BEDTIME IVY Remdesivir 100 mg/ Sodium 100 mls @ 100 mls/hr 04/17/21 18:00 Chloride IV 04/20/21 18:59 Q24H IVY Levothyroxine Sodium 100 mcg 04/17/21 09:00 Levothyroxine 100 Mcg Tab PO DAILY IVY Ondansetron HCl 4 mg 04/16/21 18:28 04/16/21 19:38 Ondansetron 4 Mg/2 Ml Sdv IV 4 mg Q4H PRN Administration Nausea/Vomiting Polyethylene Glycol 17 gm 04/16/21 18:28 Polyethylene Glycol 3350 Powder 17 Gm Packet PO DAILY PRN Constipation Sodium Chloride 10 ml 04/16/21 18:28 Sodium Chloride 0.9% 10 Ml Syringe FLUSH ASDIRECTED PRN Keep Vein Open Discontinued Medications Generic Name Dose Route Start Last Admin Trade Name Freq PRN Reason Stop Dose Admin Remdesivir 200 mg/ Sodium 250 mls @ 250 mls/hr 04/16/21 17:32 04/16/21 19:38 Chloride IV 04/16/21 17:33 250 mls/hr ONETIME ONE Administration Sodium Chloride 10 ml 04/16/21 16:37 04/16/21 16:44 Sodium Chloride 0.9% 10 Ml Syringe FLUSH 10 ml ASDIRECTED PRN Administration Keep Vein Open - Radiology Interpretation Free Text/Narrative:: CXR-bilateral stranding consistent with Covid Departure - Departure Time of Disposition: 18:30 Disposition: Admitted As Inpatient 64 Condition: Fair Clinical Impression: COVID-19, Hypoxia, Hypokalemia - Discharge Information
[2021-04-16] MEDS ORDERED: Sodium Chloride 0.9% 10 ML Syringe FLUSH PRN ×2 (16:37→18:28)
[2021-04-16] MEDS ORDERED: REMDESIVIR 200 MG in Sodium Chloride 0.9% 250 ML IV ONE (17:32)
--- NOTE | 2021-04-16 17:46 | PCM.HP.2 ---
H&P History of Present Illness - General Date of Service: 04/16/21 Admit Problem/Dx: Admission Diagnosis/Problem Admission Diagnosis/Problem Hypoxia Source of Information: Patient, Family, Provider, RN Notes Reviewed History Limitations: Reports: No Limitations - History of Present Illness Initial Comments - Free Text/Narative: Ms. Dawn is a 75-year-old woman who was admitted through the emergency department with weakness, shortness of breath, and hypoxia, secondary to COVID- 19 infection. She first developed symptoms on 04 April, initially symptoms were relatively mild. Now over the past few days she has become progressively more weak and short of breath. Oral intake has been poor and she has spent much of her time in bed. She presented to the emergency department for further evaluation. White blood cell count is within normal range, Covid testing was po sitive and chest x-ray shows bilateral infiltrates consistent with COVID-19 infection. - Related Data Allergies/Adverse Reactions: Allergies Allergy/AdvReac Type Severity Reaction Status Date / Time pramipexole Allergy Chest Verified 04/16/21 16:31 Tightness Home Medications: Home Meds carvediloL [Coreg] 6.25 mg PO BID 01/23/19 [History] Levothyroxine Sodium [Levothyroxine] 100 mcg PO DAILY 07/15/20 [History] Past Medical History HEENT History: Reports: Impaired Vision, Macular Degeneration Cardiovascular History: Reports: Hypertension Gastrointestinal History: Reports: Cholelithiasis, GERD, Other (See Below) Other Gastrointestinal History: [employer] [facility] DIRECT[employer] History: Reports: , Spontaneous Musculoskeletal History: Reports: Arthritis Other Musculoskeletal History: RIGHT HIP PAIN Neurological History: Reports: None Psychiatric History: Reports: Depression, Panic Attack Endocrine/Metabolic History: Reports: Hypothyroidism, Obesity/BMI 30+ Other Endocrine/Metabolic History: TOOK A PILL TO DESTROY THYROID Hematologic History: Reports: Anemia, Blood Transfusion(s) Immunologic History: Reports: None Oncologic (Cancer) History: Reports: None Dermatologic History: Reports: None - Infectious Disease History Infectious Disease History: Reports: Chicken Pox, Measles, Mumps - Past Surgical History GI Surgical History: Reports: Cholecystectomy, Colonoscopy, EGD Neurological Surgical History: Reports: None Social & Family History - Family History Family Medical History: No Pertinent Family History HEENT: Reports: Macular Degeneration Cardiac: Reports: NE Respiratory: Reports: None GI: Reports: None : Reports: None OBGYN: Reports: None Musculoskeletal: Reports: None Neurological: Reports: None Psychiatric: Reports: None Endocrine/Metabolic: Reports: None Hematologic: Reports: None Immunologic: Reports: None Dermatologic: Reports: None Oncologic: Reports: None - Tobacco Use Tobacco Use Status *Q: Never Tobacco User Second Hand Smoke Exposure: No - Caffeine Use Caffeine Use: Reports: Coffee, Soda Other Caffeine Use: 4 cups coffee per day. 7 up now to get something down Caffeine Use Comment: 5 cups/daily - Recreational Drug Use Recreational Drug Use: No H&P Review of Systems - Review of Systems: Review Of Systems: See Below General: Reports: Malaise, Weakness, Fatigue, Decreased Appetite. Denies: Fever, Chills HEENT: Reports: No Symptoms Pulmonary: Reports: Shortness of Breath, Cough. Denies: Wheezing, Pleuritic Chest Pain, Sputum, Hemoptysis Cardiovascular: Reports: Dyspnea on Exertion. Denies: Chest Pain, Palpitations, Orthopnea, PND, Edema, Lightheadedness Gastrointestinal: Reports: No Symptoms Genitourinary: Reports: No Symptoms Musculoskeletal: Reports: No Symptoms Skin: Reports: No Symptoms Psychiatric: Reports: No Symptoms Neurological: Reports: No Symptoms Hematologic/Lymphatic: Reports: No Symptoms Immunologic: Reports: No Symptoms Exam - Exam Exam: See Below - Vital Signs Vital Signs: Last Vital Signs Temp 98.3 F 04/16/21 16:53 Pulse 97 04/16/21 17:09 Resp 16 04/16/21 16:53 BP 160/83 H 04/16/21 17:09 Pulse Ox 94 L 04/16/21 17:09 Weight: 363 lb 12.203 oz - Exam Quality Assessment: DVT Prophylaxis General: Alert, Oriented, Cooperative, Moderate Distress HEENT: Conjunctiva Clear, Hearing Intact, Normal Nasal Septum, Posterior Pharynx Clear, Pupils Equal. No: Mucosa Moist & [place] Neck: Supple, Trachea Midline Lungs: Crackles. No: Rales, Rhonchi, Wheezing Cardiovascular: Regular Rate, Regular Rhythm, Normal S1, Normal S2. No: Systolic Murmur, Diastolic Murmur GI/Abdominal Exam: Soft, Non-Tender, No Organomegaly, No Distention Back Exam: Normal Inspection, Full Range of Motion Extremities: Non-Tender, No Pedal Edema Skin: Warm, Dry, Intact Neurological: Cranial Nerves Intact, Strength Equal Bilateral, Normal Speech, Normal Tone, Sensation Intact. No: Focal Deficit Neuro Extensive - Mental Status: Alert, Oriented x3, Normal Mood/Affect, Normal Cognition, Memory Intact - Patient Data Lab Results Last 24 hrs: Laboratory Results - last 24 hr 04/16/21 04/16/21 04/16/21 Range/Units 16:35 16:35 16:35 WBC 4.5 (4.5-11.0) K/uL RBC 4.95 (3.30-5.50) M/uL Hgb 13.9 D (12.0-15.0) g/dL Hct 42.8 (36.0-48.0) % MCV 87 (80-98) fL MCH 28 (27-31) pg MCHC 33 (32-36) % Plt Count 227 (150-400) K/uL D-Dimer, Quantitative 2130.64 H (0.0-500.0) ng/mL Sodium 138 L (140-148) mmol/L Potassium 3.4 L (3.6-5.2) mmol/L Chloride 98 L (100-108) mmol/L Carbon Dioxide 33 H (21-32) mmol/L Anion Gap 10.4 (5.0-14.0) mmol/L BUN 18 (7-18) mg/dL Creatinine 0.9 (0.6-1.0) mg/dL Est Cr Clr Drug Dosing 41.40 mL/min Estimated GFR (MDRD) > 60 (>60) Glucose 130 H (74-106) mg/dL Calcium 8.4 L (8.5-10.1) mg/dL C-Reactive Protein 6.18 H (0.0-0.3) mg/dL Urine Color (YELLOW) Urine Appearance (CLEAR) Urine pH (5.0-8.0) Ur Specific [place] (1.008-1.030) Urine Protein (NEGATIVE) mg/dL Urine Glucose (UA) (NEGATIVE) mg/dL Urine Ketones (NEGATIVE) mg/dL Urine Occult Blood (NEGATIVE) Urine Nitrite (NEGATIVE) Urine Bilirubin (NEGATIVE) Urine Urobilinogen (0.2-1.0) EU/dL Ur Leukocyte Esterase (NEGATIVE) Urine RBC (0-5) Urine WBC (0-5) Ur Epithelial Cells Amorphous Sediment Urine Bacteria Urine Mucus 04/16/21 Range/Units 17:29 WBC (4.5-11.0) K/uL RBC (3.30-5.50) M/uL Hgb (12.0-15.0) g/dL Hct (36.0-48.0) % MCV (80-98) fL MCH (27-31) pg MCHC (32-36) % Plt Count (150-400) K/uL D-Dimer, Quantitative (0.0-500.0) ng/mL Sodium (140-148) mmol/L Potassium (3.6-5.2) mmol/L Chloride (100-108) mmol/L Carbon Dioxide (21-32) mmol/L Anion Gap (5.0-14.0) mmol/L BUN (7-18) mg/dL Creatinine (0.6-1.0) mg/dL Est Cr Clr Drug Dosing mL/min Estimated GFR (MDRD) (>60) Glucose (74-106) mg/dL Calcium (8.5-10.1) mg/dL C-Reactive Protein (0.0-0.3) mg/dL Urine Color Yellow (YELLOW) Urine Appearance Cloudy A (CLEAR) Urine pH 6.0 (5.0-8.0) Ur Specific [place] 1.020 (1.008-1.030) Urine Protein 100 H (NEGATIVE) mg/dL Urine Glucose (UA) Negative (NEGATIVE) mg/dL Urine Ketones Negative (NEGATIVE) mg/dL Urine Occult Blood Negative (NEGATIVE) Urine Nitrite Negative (NEGATIVE) Urine Bilirubin Negative (NEGATIVE) Urine Urobilinogen 0.2 (0.2-1.0) EU/dL Ur Leukocyte Esterase Small H (NEGATIVE) Urine RBC 0-5 (0-5) Urine WBC 5-10 H (0-5) Ur Epithelial Cells Moderate Amorphous Sediment Few Urine Bacteria Moderate Urine Mucus Few Result Diagrams: 04/16/21 16:35 04/16/21 16:35 Sepsis Event Note - Focused Exam Vital Signs: Vital Signs Temp Pulse Resp BP Pulse Ox 04/16/21 17:09 97 160/83 H 94 L 04/16/21 16:53 98.3 F 111 H 16 144/86 H 90 L *Q Meaningful Use (ADM) - VTE Risk Assess *Q Each Risk Factor Represents 1 Point: Serious lung disease including pneumonia, Other Risk Factor (COVID-19) Total Score 1 Point Risk Factors: 2 Each Risk Factor Represents 2 Points: None Total Score 2 Point Risk Factors: 0 Each Risk Factor Represents 3 Points: Age 75 Years or Greater Total Score 3 Point Risk Factors: 3 Each Risk Factor Represents 5 Points: None Total Score 5 Point Risk Factors: 0 Venous Thromboembolism Risk Factor Score *Q: 5 Problem List Initiated/Reviewed/Updated: Yes Orders Last 24hrs: Active Orders 24 hr Category Date Time Status Patient Status Manage Transfer [TRANSFER] Routine ADT 04/16/21 17:37 Active Oxygen Therapy Adult [Oxygen Therapy, ED] [RC] Care 04/16/21 16:37 Active ASDIRECTED Chest 2V [CR] Stat Exams 04/16/21 16:36 Taken HEPATIC FUNCTION PANEL,HFP [CHEM] Stat Lab 04/16/21 16:30 Received Remdesivir 100 mg Med 04/17/21 18:00 Ordered Sodium Chloride 0.9% [Normal Saline] 100 ml IV Q24H Remdesivir 200 mg Med 04/16/21 17:32 Ordered Sodium Chloride 0.9% [Normal Saline] 250 ml IV ONETIME Sodium Chloride 0.9% [Saline Flush] Med 04/16/21 16:37 Active 10 ml FLUSH ASDIRECTED PRN dexAMETHasone [Decadron] Med 04/16/21 17:45 Ordered 6 mg IVPUSH Q24H Saline Lock Insert [OM.PC] Routine Oth 04/16/21 16:37 Ordered Resuscitation Status Routine Resus Stat 04/16/21 17:38 Ordered Medication Orders Dexamethasone (Dexamethasone 4 Mg/Ml Sdv) 6 mg IVPUSH Q24H IVY Remdesivir 200 mg/ Sodium (Chloride) 250 mls @ 250 mls/hr IV ONETIME ONE Stop: 04/16/21 17:33 Remdesivir 100 mg/ Sodium (Chloride) 100 mls @ 100 mls/hr IV Q24H IVY Stop: 04/20/21 18:59 Sodium Chloride (Sodium Chloride 0.9% 10 Ml Syringe) 10 ml FLUSH ASDIRECTED PRN PRN Reason: Keep Vein Open Last Admin: 04/16/21 16:44 Dose: 10 ml Documented by: MAITE Assessment/Plan Comment:: ASSESSMENT AND PLAN COVID-19 INFECTION-progressive weakness and shortness of breath, found to be hypoxic on initial evaluation on room air in the emergency department. Covid testing positive and chest x-ray shows bilateral pulmonary infiltrates consi stent with COVID-19 infection. We discussed management and treatment, including remdesivir and dexamethasone. Risks and goals of each of the medication as well as side effects were reviewed with the patient and she is given informed consent to proceed with these 2 medications. Family members are reluctant for her to receive the medications but understand that this decision is the patient's. -Remdesivir 200 mg IV now, 100 mg daily for 4 days starting tomorrow, today is day 1 of 5 -Dexamethasone 6 mg IV daily, today is day 1 -Limit IV fluids -Prone positioning -Supplemental oxygen as needed ACUTE HYPOXIC RESPIRATORY FAILURE-secondary to current COVID-19 infection -Management as above MAINTENANCE ISSUES -DVT prophylaxis; Lovenox 40 mg subcu daily -GI prophylaxis; not indicated -Perera catheter; not indicated -Nutrition; regular diet -Nicotine dependence; not required CODE STATUS-FULL CODE ADMISSION STATUS-patient will be admitted to inpatient status, expect at least a 2 night hospital stay for evaluation and management of problems as outlined above. At the time of this admission I do not reasonably expected evaluation and management of this problem will require more than a 96 hour hospital stay. DISPOSITION-anticipate discharge to home after the hospital stay. PRIMARY CARE PROVIDER-Harry Nowak - Mortality Measure Prognosis:: Good
--- NOTE | 2021-04-16 18:02 | CRLCR ---
For Patients: As a result of the Cures Act, medical imaging exams and procedure reports are released immediately into your electronic medical record. You may view this report before your referring provider. If you have questions, please contact your health care provider. INDICATION: COVID, hypoxia. TECHNIQUE: Chest 2 views. COMPARISON: None. FINDINGS: Low lung volumes. There are patchy opacities in the left mid and lower lung as well as a subtle opacity in the right lung base. No pleural effusion or pneumothorax. Normal heart size and pulmonary vascularity. Surgical clips right upper quadrant. Chronic appearing anterior wedging of a lower thoracic vertebral body. IMPRESSION: Bilateral patchy pulmonary opacities suspicious for pneumonia. Dictated by Kadi Nash MD @ 04/16/2021 6:00:43 PM (Electronically Signed)
[2021-04-16] MEDS ORDERED: Polyethylene Glycol 3350 Powder 17 GM Packet PO PRN (18:28)
[2021-04-16] MEDS ORDERED: Ondansetron 4 MG/2 ML SDV IV PRN (18:28)
[2021-04-16] MEDS: Enoxaparin 40 MG/0.4 ML Syringe SUBCUT SCH ×2 (19:38→20:55)
[2021-04-16] MEDS: Dexamethasone 4 MG/ML SDV IVPUSH SCH (19:38)
[2021-04-16] MEDS: Acetaminophen 325 MG Tab PO PRN (19:39)
[2021-04-17] MEDS: Carvedilol 3.125 MG Tab PO SCH ×2 (08:28→17:21)
[2021-04-17] MEDS: Levothyroxine 100 MCG Tab PO SCH (08:29)
--- NOTE | 2021-04-17 13:48 | PCM.PN ---
- General Info Date of Service: 04/17/21 Subjective Update: Ms. Dawn has been stable since admission yesterday. Currently requiring 1 to 2 L of oxygen per minute via nasal cannula. Energy level and appetite remain po or, overall she is very weak. Functional Status: Reports: Urinating - Review of Systems General: Reports: Weakness, Fatigue. Denies: Fever, Chills Pulmonary: Reports: Shortness of Breath, Cough. Denies: Pleuritic Chest Pain, Sputum, Hemoptysis, Wheezing Cardiovascular: Reports: Dyspnea on Exertion. Denies: Chest Pain, Palpitations, Orthopnea, PND, Edema, Lightheadedness Gastrointestinal: Reports: Decreased Appetite, Diarrhea. Denies: Difficulty Swallowing, Hematochezia, Melena, Nausea, Vomiting Genitourinary: Reports: No Symptoms - Patient Data Vitals - Most Recent: Last Vital Signs Temp 95.6 F L 04/17/21 11:00 Pulse 66 04/17/21 11:00 Resp 18 04/17/21 11:00 BP 107/65 04/17/21 11:00 Pulse Ox 94 L 04/17/21 12:59 Weight - Most Recent: 160 lb 9.6 oz I&O - Last 24 Hours: Intake & Output 04/16/21 04/17/21 04/17/21 22:59 06:59 14:59 Intake Total 120 Balance 120 Lab Results Last 24 Hours: Laboratory Results - last 24 hr 04/16/21 04/16/21 04/16/21 Range/Units 16:30 16:35 16:35 WBC 4.5 (4.5-11.0) K/uL RBC 4.95 (3.30-5.50) M/uL Hgb 13.9 D (12.0-15.0) g/dL Hct 42.8 (36.0-48.0) % MCV 87 (80-98) fL MCH 28 (27-31) pg MCHC 33 (32-36) % Plt Count 227 (150-400) K/uL Neut % (Auto) (36-66) % Lymph % (Auto) (24-44) % Carter % (Auto) (2-6) % Eos % (Auto) (2-4) % Baso % (Auto) (0-1) % D-Dimer, Quantitative (0.0-500.0) ng/mL Sodium 138 L (140-148) mmol/L Potassium 3.4 L (3.6-5.2) mmol/L Chloride 98 L (100-108) mmol/L Carbon Dioxide 33 H (21-32) mmol/L Anion Gap 10.4 (5.0-14.0) mmol/L BUN 18 (7-18) mg/dL Creatinine 0.9 (0.6-1.0) mg/dL Est Cr Clr Drug Dosing 41.40 mL/min Estimated GFR (MDRD) > 60 (>60) Glucose 130 H (74-106) mg/dL Calcium 8.4 L (8.5-10.1) mg/dL Total Bilirubin 0.2 (0.2-1.0) mg/dL Direct Bilirubin 0.08 (0.0-0.2) mg/dL Indirect Bilirubin TNP AST 74 H (15-37) U/L ALT 52 (12-78) U/L Alkaline Phosphatase 48 (46-116) U/L C-Reactive Protein 6.18 H (0.0-0.3) mg/dL Total Protein 7.1 (6.4-8.2) g/dL Albumin 2.8 L (3.4-5.0) g/dL Globulin 4.3 H (2.3-3.5) g/dL Albumin/Globulin Ratio 0.7 L (1.2-2.2) Urine Color (YELLOW) Urine Appearance (CLEAR) Urine pH (5.0-8.0) Ur Specific Sylvester (1.008-1.030) Urine Protein (NEGATIVE) mg/dL Urine Glucose (UA) (NEGATIVE) mg/dL Urine Ketones (NEGATIVE) mg/dL Urine Occult Blood (NEGATIVE) Urine Nitrite (NEGATIVE) Urine Bilirubin (NEGATIVE) Urine Urobilinogen (0.2-1.0) EU/dL Ur Leukocyte Esterase (NEGATIVE) Urine RBC (0-5) Urine WBC (0-5) Ur Epithelial Cells Amorphous Sediment Urine Bacteria Urine Mucus 04/16/21 04/16/21 04/17/21 Range/Units 16:35 17:29 04:30 WBC 3.3 L (4.5-11.0) K/uL RBC 4.82 (3.30-5.50) M/uL Hgb 13.7 (12.0-15.0) g/dL Hct 42.0 (36.0-48.0) % MCV 87 (80-98) fL MCH 28 (27-31) pg MCHC 33 (32-36) % Plt Count 218 (150-400) K/uL Neut % (Auto) 69.7 H (36-66) % Lymph % (Auto) 23.4 L (24-44) % Carter % (Auto) 6.0 (2-6) % Eos % (Auto) 0.0 L (2-4) % Baso % (Auto) 0.9 (0-1) % D-Dimer, Quantitative 2130.64 H (0.0-500.0) ng/mL Sodium (140-148) mmol/L Potassium (3.6-5.2) mmol/L Chloride (100-108) mmol/L Carbon Dioxide (21-32) mmol/L Anion Gap (5.0-14.0) mmol/L BUN (7-18) mg/dL Creatinine (0.6-1.0) mg/dL Est Cr Clr Drug Dosing mL/min Estimated GFR (MDRD) (>60) Glucose (74-106) mg/dL Calcium (8.5-10.1) mg/dL Total Bilirubin (0.2-1.0) mg/dL Direct Bilirubin (0.0-0.2) mg/dL Indirect Bilirubin AST (15-37) U/L ALT (12-78) U/L Alkaline Phosphatase (46-116) U/L C-Reactive Protein (0.0-0.3) mg/dL Total Protein (6.4-8.2) g/dL Albumin (3.4-5.0) g/dL Globulin (2.3-3.5) g/dL Albumin/Globulin Ratio (1.2-2.2) Urine Color Yellow (YELLOW) Urine Appearance Cloudy A (CLEAR) Urine pH 6.0 (5.0-8.0) Ur Specific Sylvester 1.020 (1.008-1.030) Urine Protein 100 H (NEGATIVE) mg/dL Urine Glucose (UA) Negative (NEGATIVE) mg/dL Urine Ketones Negative (NEGATIVE) mg/dL Urine Occult Blood Negative (NEGATIVE) Urine Nitrite Negative (NEGATIVE) Urine Bilirubin Negative (NEGATIVE) Urine Urobilinogen 0.2 (0.2-1.0) EU/dL Ur Leukocyte Esterase Small H (NEGATIVE) Urine RBC 0-5 (0-5) Urine WBC 5-10 H (0-5) Ur Epithelial Cells Moderate Amorphous Sediment Few Urine Bacteria Moderate Urine Mucus Few 04/17/21 04/17/21 Range/Units 04:30 04:30 WBC (4.5-11.0) K/uL RBC (3.30-5.50) M/uL Hgb (12.0-15.0) g/dL Hct (36.0-48.0) % MCV (80-98) fL MCH (27-31) pg MCHC (32-36) % Plt Count (150-400) K/uL Neut % (Auto) (36-66) % Lymph % (Auto) (24-44) % Carter % (Auto) (2-6) % Eos % (Auto) (2-4) % Baso % (Auto) (0-1) % D-Dimer, Quantitative 2175.12 H (0.0-500.0) ng/mL Sodium 144 (140-148) mmol/L Potassium 3.6 (3.6-5.2) mmol/L Chloride 102 (100-108) mmol/L Carbon Dioxide 31 (21-32) mmol/L Anion Gap 10.7 (5.0-14.0) mmol/L BUN 23 H (7-18) mg/dL Creatinine 1.1 H (0.6-1.0) mg/dL Est Cr Clr Drug Dosing 33.87 mL/min Estimated GFR (MDRD) 48 L (>60) Glucose 164 H (74-106) mg/dL Calcium 8.3 L (8.5-10.1) mg/dL Total Bilirubin 0.2 (0.2-1.0) mg/dL Direct Bilirubin (0.0-0.2) mg/dL Indirect Bilirubin AST 62 H (15-37) U/L ALT 50 (12-78) U/L Alkaline Phosphatase 42 L (46-116) U/L C-Reactive Protein 7.16 H (0.0-0.3) mg/dL Total Protein 7.0 (6.4-8.2) g/dL Albumin 2.7 L (3.4-5.0) g/dL Globulin 4.3 H (2.3-3.5) g/dL Albumin/Globulin Ratio 0.6 L (1.2-2.2) Urine Color (YELLOW) Urine Appearance (CLEAR) Urine pH (5.0-8.0) Ur Specific Sylvester (1.008-1.030) Urine Protein (NEGATIVE) mg/dL Urine Glucose (UA) (NEGATIVE) mg/dL Urine Ketones (NEGATIVE) mg/dL Urine Occult Blood (NEGATIVE) Urine Nitrite (NEGATIVE) Urine Bilirubin (NEGATIVE) Urine Urobilinogen (0.2-1.0) EU/dL Ur Leukocyte Esterase (NEGATIVE) Urine RBC (0-5) Urine WBC (0-5) Ur Epithelial Cells Amorphous Sediment Urine Bacteria Urine Mucus Med Orders - Current: Current Medications Acetaminophen (Acetaminophen 325 Mg Tab) 650 mg PO Q4H PRN PRN Reason: Pain (Mild 1-3)/fever Last Admin: 04/16/21 19:39 Dose: 650 mg Documented by: Carvedilol (Carvedilol 3.125 Mg Tab) 6.25 mg PO BIDMEALS [facility] Last Admin: 04/17/21 08:28 Dose: 6.25 mg Documented by: Dexamethasone (Dexamethasone 4 Mg/Ml Sdv) 6 mg IVPUSH Q24H [facility] Last Admin: 04/16/21 19:38 Dose: 6 mg Documented by: Enoxaparin Sodium (Enoxaparin 40 Mg/0.4 Ml Syringe) 40 mg SUBCUT BEDTIME [facility] Last Admin: 04/16/21 20:55 Dose: Not Given Documented by: Remdesivir 100 mg/ Sodium (Chloride) 100 mls @ 100 mls/hr IV Q24H [facility] Stop: 04/20/21 18:59 Levothyroxine Sodium (Levothyroxine 100 Mcg Tab) 100 mcg PO ACBREAKFAST [facility] Last Admin: 04/17/21 08:29 Dose: 100 mcg Documented by: Ondansetron HCl (Ondansetron 4 Mg/2 Ml Sdv) 4 mg IV Q4H PRN PRN Reason: Nausea/Vomiting Last Admin: 04/16/21 19:38 Dose: 4 mg Documented by: Polyethylene Glycol (Polyethylene Glycol 3350 Powder 17 Gm Packet) 17 gm PO DAILY PRN PRN Reason: Constipation Sodium Chloride (Sodium Chloride 0.9% 10 Ml Syringe) 10 ml FLUSH ASDIRECTED PRN PRN Reason: Keep Vein Open Discontinued Medications Remdesivir 200 mg/ Sodium (Chloride) 250 mls @ 250 mls/hr IV ONETIME ONE Stop: 04/16/21 17:33 Last Admin: 04/16/21 19:38 Dose: 250 mls/hr Documented by: Sodium Chloride (Sodium Chloride 0.9% 10 Ml Syringe) 10 ml FLUSH ASDIRECTED PRN PRN Reason: Keep Vein Open Last Admin: 04/16/21 16:44 Dose: 10 ml Documented by: - Exam Quality Assessment: Supplemental Oxygen, DVT Prophylaxis General: Alert, Oriented, Cooperative, Mild Distress Lungs: Decreased Breath Sounds, Crackles. No: Rales, Rhonchi, Wheezing Cardiovascular: Regular Rate, Regular Rhythm, No Murmurs GI/Abdominal Exam: Soft, Non-Tender, No Organomegaly, No Distention Extremities: Non-Tender, No Pedal Edema - Patient Data Lab Results Last 24 hrs: Laboratory Results - last 24 hr 04/16/21 04/16/21 04/16/21 Range/Units 16:30 16:35 16:35 WBC 4.5 (4.5-11.0) K/uL RBC 4.95 (3.30-5.50) M/uL Hgb 13.9 D (12.0-15.0) g/dL Hct 42.8 (36.0-48.0) % MCV 87 (80-98) fL MCH 28 (27-31) pg MCHC 33 (32-36) % Plt Count 227 (150-400) K/uL Neut % (Auto) (36-66) % Lymph % (Auto) (24-44) % Carter % (Auto) (2-6) % Eos % (Auto) (2-4) % Baso % (Auto) (0-1) % D-Dimer, Quantitative (0.0-500.0) ng/mL Sodium 138 L (140-148) mmol/L Potassium 3.4 L (3.6-5.2) mmol/L Chloride 98 L (100-108) mmol/L Carbon Dioxide 33 H (21-32) mmol/L Anion Gap 10.4 (5.0-14.0) mmol/L BUN 18 (7-18) mg/dL Creatinine 0.9 (0.6-1.0) mg/dL Est Cr Clr Drug Dosing 41.40 mL/min Estimated GFR (MDRD) > 60 (>60) Glucose 130 H (74-106) mg/dL Calcium 8.4 L (8.5-10.1) mg/dL Total Bilirubin 0.2 (0.2-1.0) mg/dL Direct Bilirubin 0.08 (0.0-0.2) mg/dL Indirect Bilirubin TNP AST 74 H (15-37) U/L ALT 52 (12-78) U/L Alkaline Phosphatase 48 (46-116) U/L C-Reactive Protein 6.18 H (0.0-0.3) mg/dL Total Protein 7.1 (6.4-8.2) g/dL Albumin 2.8 L (3.4-5.0) g/dL Globulin 4.3 H (2.3-3.5) g/dL Albumin/Globulin Ratio 0.7 L (1.2-2.2) Urine Color (YELLOW) Urine Appearance (CLEAR) Urine pH (5.0-8.0) Ur Specific Sylvester (1.008-1.030) Urine Protein (NEGATIVE) mg/dL Urine Glucose (UA) (NEGATIVE) mg/dL Urine Ketones (NEGATIVE) mg/dL Urine Occult Blood (NEGATIVE) Urine Nitrite (NEGATIVE) Urine Bilirubin (NEGATIVE) Urine Urobilinogen (0.2-1.0) EU/dL Ur Leukocyte Esterase (NEGATIVE) Urine RBC (0-5) Urine WBC (0-5) Ur Epithelial Cells Amorphous Sediment Urine Bacteria Urine Mucus 04/16/21 04/16/21 04/17/21 Range/Units 16:35 17:29 04:30 WBC 3.3 L (4.5-11.0) K/uL RBC 4.82 (3.30-5.50) M/uL Hgb 13.7 (12.0-15.0) g/dL Hct 42.0 (36.0-48.0) % MCV 87 (80-98) fL MCH 28 (27-31) pg MCHC 33 (32-36) % Plt Count 218 (150-400) K/uL Neut % (Auto) 69.7 H (36-66) % Lymph % (Auto) 23.4 L (24-44) % Carter % (Auto) 6.0 (2-6) % Eos % (Auto) 0.0 L (2-4) % Baso % (Auto) 0.9 (0-1) % D-Dimer, Quantitative 2130.64 H (0.0-500.0) ng/mL Sodium (140-148) mmol/L Potassium (3.6-5.2) mmol/L Chloride (100-108) mmol/L Carbon Dioxide (21-32) mmol/L Anion Gap (5.0-14.0) mmol/L BUN (7-18) mg/dL Creatinine (0.6-1.0) mg/dL Est Cr Clr Drug Dosing mL/min Estimated GFR (MDRD) (>60) Glucose (74-106) mg/dL Calcium (8.5-10.1) mg/dL Total Bilirubin (0.2-1.0) mg/dL Direct Bilirubin (0.0-0.2) mg/dL Indirect Bilirubin AST (15-37) U/L ALT (12-78) U/L Alkaline Phosphatase (46-116) U/L C-Reactive Protein (0.0-0.3) mg/dL Total Protein (6.4-8.2) g/dL Albumin (3.4-5.0) g/dL Globulin (2.3-3.5) g/dL Albumin/Globulin Ratio (1.2-2.2) Urine Color Yellow (YELLOW) Urine Appearance Cloudy A (CLEAR) Urine pH 6.0 (5.0-8.0) Ur Specific Sylvester 1.020 (1.008-1.030) Urine Protein 100 H (NEGATIVE) mg/dL Urine Glucose (UA) Negative (NEGATIVE) mg/dL Urine Ketones Negative (NEGATIVE) mg/dL Urine Occult Blood Negative (NEGATIVE) Urine Nitrite Negative (NEGATIVE) Urine Bilirubin Negative (NEGATIVE) Urine Urobilinogen 0.2 (0.2-1.0) EU/dL Ur Leukocyte Esterase Small H (NEGATIVE) Urine RBC 0-5 (0-5) Urine WBC 5-10 H (0-5) Ur Epithelial Cells Moderate Amorphous Sediment Few Urine Bacteria Moderate Urine Mucus Few 04/17/21 04/17/21 Range/Units 04:30 04:30 WBC (4.5-11.0) K/uL RBC (3.30-5.50) M/uL Hgb (12.0-15.0) g/dL Hct (36.0-48.0) % MCV (80-98) fL MCH (27-31) pg MCHC (32-36) % Plt Count (150-400) K/uL Neut % (Auto) (36-66) % Lymph % (Auto) (24-44) % Carter % (Auto) (2-6) % Eos % (Auto) (2-4) % Baso % (Auto) (0-1) % D-Dimer, Quantitative 2175.12 H (0.0-500.0) ng/mL Sodium 144 (140-148) mmol/L Potassium 3.6 (3.6-5.2) mmol/L Chloride 102 (100-108) mmol/L Carbon Dioxide 31 (21-32) mmol/L Anion Gap 10.7 (5.0-14.0) mmol/L BUN 23 H (7-18) mg/dL Creatinine 1.1 H (0.6-1.0) mg/dL Est Cr Clr Drug Dosing 33.87 mL/min Estimated GFR (MDRD) 48 L (>60) Glucose 164 H (74-106) mg/dL Calcium 8.3 L (8.5-10.1) mg/dL Total Bilirubin 0.2 (0.2-1.0) mg/dL Direct Bilirubin (0.0-0.2) mg/dL Indirect Bilirubin AST 62 H (15-37) U/L ALT 50 (12-78) U/L Alkaline Phosphatase 42 L (46-116) U/L C-Reactive Protein 7.16 H (0.0-0.3) mg/dL Total Protein 7.0 (6.4-8.2) g/dL Albumin 2.7 L (3.4-5.0) g/dL Globulin 4.3 H (2.3-3.5) g/dL Albumin/Globulin Ratio 0.6 L (1.2-2.2) Urine Color (YELLOW) Urine Appearance (CLEAR) Urine pH (5.0-8.0) Ur Specific Sylvester (1.008-1.030) Urine Protein (NEGATIVE) mg/dL Urine Glucose (UA) (NEGATIVE) mg/dL Urine Ketones (NEGATIVE) mg/dL Urine Occult Blood (NEGATIVE) Urine Nitrite (NEGATIVE) Urine Bilirubin (NEGATIVE) Urine Urobilinogen (0.2-1.0) EU/dL Ur Leukocyte Esterase (NEGATIVE) Urine RBC (0-5) Urine WBC (0-5) Ur Epithelial Cells Amorphous Sediment Urine Bacteria Urine Mucus Result Diagrams: 04/17/21 04:30 04/17/21 04:30 Sepsis Event Note - Evaluation Sepsis Screening Result: No Definite Risk - Focused Exam Vital Signs: Vital Signs Temp Pulse Pulse Resp BP BP Pulse Ox 04/17/21 12:59 94 L 04/17/21 11:00 95.6 F L 66 18 107/65 93 L 04/17/21 08:28 61 116/69 04/17/21 08:00 92 L 04/17/21 07:28 91 L 04/17/21 07:00 95.1 F L 61 20 116/69 88 L 04/17/21 02:58 93.4 F L 57 L 16 111/67 93 L - Problem List Review Problem List Initiated/Reviewed/Updated: Yes - My Orders Last 24 Hours: My Active Orders 04/16/21 Dinner 2 Gram Sodium Diet [DIET] 04/16/21 17:38 Resuscitation Status Routine 04/16/21 17:45 dexAMETHasone [Decadron] 6 mg IVPUSH Q24H 04/16/21 18:28 Acetaminophen [TylenoL] 650 mg PO Q4H PRN Ondansetron [Zofran] 4 mg IV Q4H PRN Sodium Chloride 0.9% [Saline Flush] 10 ml FLUSH ASDIRECTED PRN polyethylene glycoL 3350 [MiraLAX] 17 gm PO DAILY PRN 04/16/21 18:28 Patient Status [ADT] Routine Ambulate [RC] QID Intake and Output [RC] QSHIFT Notify Provider Vital Signs [RC] ASDIRECTED Oxygen Therapy [RC] PRN Pulse Oximetry [RC] CONTINUOUS Up With Assistance [RC] ASDIRECTED Up to Chair [RC] QID VTE/DVT Education [RC] Per Unit Routine Vital Signs [RC] Q4H Saline Lock Insert [OM.PC] Routine 04/16/21 19:36 Isolation [COMM] Routine 04/16/21 21:00 Enoxaparin [Lovenox] 40 mg SUBCUT BEDTIME 04/17/21 07:30 Levothyroxine [Synthroid] 100 mcg PO ACBREAKFAST 04/17/21 08:00 carvediloL [Coreg] 6.25 mg PO BIDMEALS 04/17/21 13:43 Consult to Physical Therapy [PT Evaluation and Treatment] [CONS] Routine 04/17/21 18:00 Remdesivir 100 mg Sodium Chloride 0.9% [Normal Saline] 100 ml IV Q24H - Plan Plan:: ASSESSMENT AND PLAN COVID-19 INFECTION-currently requiring 1 to 2 L of oxygen per minute via nasal cannula, remains very weak with poor appetite -Remdesivir 200 mg IV now, 100 mg daily for 4 days, today is day 2 of 5 -Dexamethasone 6 mg IV daily, today is day 2 -Limit IV fluids -Prone positioning -Supplemental oxygen as needed ACUTE HYPOXIC RESPIRATORY FAILURE-secondary to current COVID-19 infection -Management as above MAINTENANCE ISSUES -DVT prophylaxis; Lovenox 40 mg subcu daily -GI prophylaxis; not indicated -Perera catheter; not indicated -Nutrition; regular diet -Nicotine dependence; not required CODE STATUS-FULL CODE ADMISSION STATUS-patient will be admitted to inpatient status, expect at least a 2 night hospital stay for evaluation and management of problems as outlined above. At the time of this admission I do not reasonably expected evaluation and management of this problem will require more than a 96 hour hospital stay. DISPOSITION-anticipate discharge to home after the hospital stay. PRIMARY CARE PROVIDER-Harry Nowak
[2021-04-17] MEDS: Dexamethasone 4 MG/ML SDV IVPUSH SCH (17:22)
[2021-04-17] MEDS: REMDESIVIR 100 MG in Sodium Chloride 0.9% 100 ML IV SCH (17:38)
[2021-04-17] MEDS: Enoxaparin 40 MG/0.4 ML Syringe SUBCUT SCH (20:44)
[2021-04-17] MEDS: Melatonin 3 MG Tab PO PRN (21:35)
[2021-04-18] MEDS: Levothyroxine 100 MCG Tab PO SCH (07:48)
[2021-04-18] MEDS: Carvedilol 3.125 MG Tab PO SCH ×2 (07:48→17:25)
[2021-04-18] MEDS: Acetaminophen 325 MG Tab PO PRN ×3 (12:09→23:18)
[2021-04-18] MEDS ORDERED: Benzonatate 100 MG Cap PO PRN (14:05)
--- NOTE | 2021-04-18 14:06 | PCM.PN ---
- General Info Date of Service: 04/18/21 Subjective Update: No acute events overnight. Patient reports she is feeling better today. Still weak and still short of breath but less so. Appetite not very good. Cough is minimal. No fevers. Able to walk to the bathroom and back. Functional Status: Reports: Pain Controlled, Tolerating Diet - Review of Systems General: Reports: Weakness Pulmonary: Reports: Shortness of Breath - Patient Data Vitals - Most Recent: Last Vital Signs Temp 35.8 C L 04/18/21 10:01 Pulse 64 04/18/21 10:01 Resp 18 04/18/21 10:01 BP 99/56 L 04/18/21 10:01 Pulse Ox 92 L 04/18/21 12:41 Weight - Most Recent: 72.847 kg I&O - Last 24 Hours: Intake & Output 04/17/21 04/18/21 04/18/21 22:59 06:59 14:59 Intake Total 160 600 Output Total 1 Balance 160 599 Med Orders - Current: Current Medications Acetaminophen (Acetaminophen 325 Mg Tab) 650 mg PO Q4H PRN PRN Reason: Pain (Mild 1-3)/fever Last Admin: 04/18/21 12:09 Dose: 650 mg Documented by: Carvedilol (Carvedilol 3.125 Mg Tab) 6.25 mg PO BIDMEALS [facility] Last Admin: 04/18/21 07:48 Dose: 6.25 mg Documented by: Dexamethasone (Dexamethasone 4 Mg/Ml Sdv) 6 mg IVPUSH Q24H [facility] Last Admin: 04/17/21 17:22 Dose: 6 mg Documented by: Enoxaparin Sodium (Enoxaparin 40 Mg/0.4 Ml Syringe) 40 mg SUBCUT BEDTIME [facility] Last Admin: 04/17/21 20:44 Dose: 40 mg Documented by: Remdesivir 100 mg/ Sodium (Chloride) 100 mls @ 100 mls/hr IV Q24H [facility] Stop: 04/20/21 18:59 Last Admin: 04/17/21 17:38 Dose: 100 mls/hr Documented by: Levothyroxine Sodium (Levothyroxine 100 Mcg Tab) 100 mcg PO ACBREAKFAST [facility] Last Admin: 04/18/21 07:48 Dose: 100 mcg Documented by: Melatonin (Melatonin 3 Mg Tab) 9 mg PO BEDTIME PRN PRN Reason: Insomnia Last Admin: 04/17/21 21:35 Dose: 9 mg Documented by: Ondansetron HCl (Ondansetron 4 Mg/2 Ml Sdv) 4 mg IV Q4H PRN PRN Reason: Nausea/Vomiting Last Admin: 04/16/21 19:38 Dose: 4 mg Documented by: Polyethylene Glycol (Polyethylene Glycol 3350 Powder 17 Gm Packet) 17 gm PO DAILY PRN PRN Reason: Constipation Sodium Chloride (Sodium Chloride 0.9% 10 Ml Syringe) 10 ml FLUSH ASDIRECTED PRN PRN Reason: Keep Vein Open Discontinued Medications Remdesivir 200 mg/ Sodium (Chloride) 250 mls @ 250 mls/hr IV ONETIME ONE Stop: 04/16/21 17:33 Last Admin: 04/16/21 19:38 Dose: 250 mls/hr Documented by: Sodium Chloride (Sodium Chloride 0.9% 10 Ml Syringe) 10 ml FLUSH ASDIRECTED PRN PRN Reason: Keep Vein Open Last Admin: 04/16/21 16:44 Dose: 10 ml Documented by: - Exam Quality Assessment: Supplemental Oxygen General: Alert, Oriented, Cooperative, No Acute Distress Lungs: Normal Respiratory Effort, Crackles (few lower and mid lungs) Cardiovascular: Regular Rate, Regular Rhythm GI/Abdominal Exam: Soft, No Distention Extremities: No Pedal Edema. No: Increased Warmth Skin: Warm, Dry Psy/Mental Status: Alert, Normal Affect - Patient Data Result Diagrams: 04/17/21 04:30 04/17/21 04:30 Sepsis Event Note - Evaluation Sepsis Screening Result: No Definite Risk - Focused Exam Vital Signs: Vital Signs Temp Pulse Pulse Resp BP BP Pulse Ox 04/18/21 12:41 92 L 04/18/21 10:01 35.8 C L 64 18 99/56 L 94 L 04/18/21 07:48 64 110/56 L 04/18/21 07:42 35.5 C L 63 18 110/56 L 94 L 04/18/21 07:08 93 L 04/18/21 03:14 35.1 C L 63 16 103/56 L 93 L - Problem List Review Problem List Initiated/Reviewed/Updated: Yes - My Orders Last 24 Hours: My Active Orders 04/18/21 14:05 Benzonatate [Tessalon Perles] 100 mg PO Q8H PRN 04/19/21 05:00 CBC W/O DIFF,HEMOGRAM [HEME] Timed (1) COMPREHENSIVE METABOLIC PN,CMP [CHEM] Timed CRP [C-REACTIVE PROTEIN] [CHEM] Timed D-DIMER QUANTITATIVE [COAG] Timed - Plan Plan:: ASSESSMENT AND PLAN COVID-19 INFECTION-stable and still requiring supplemental oxygen. Seems to be a little better today. Tolerating treatment so far. -Remdesivir x5 days, today is day 3 of 5 -Dexamethasone 6 mg IV daily, today is day 3 -Limit IV fluids -Prone positioning -Supplemental oxygen as needed ACUTE HYPOXIC RESPIRATORY FAILURE-secondary to current COVID-19 infection. -Management as above MAINTENANCE ISSUES -DVT prophylaxis; Lovenox 40 mg subcu daily -GI prophylaxis; not indicated -Perera catheter; not indicated -Nutrition; regular diet DISPOSITION-anticipate discharge to home after the hospital stay. Yusef Lacy MD
[2021-04-18] MEDS: REMDESIVIR 100 MG in Sodium Chloride 0.9% 100 ML IV SCH (17:26)
[2021-04-18] MEDS: Dexamethasone 4 MG/ML SDV IVPUSH SCH (17:29)
[2021-04-18] MEDS: Enoxaparin 40 MG/0.4 ML Syringe SUBCUT SCH (20:19)
[2021-04-18] MEDS: Melatonin 3 MG Tab PO PRN (23:18)
[2021-04-19] MEDS ORDERED: Potassium Chloride 20 MEQ Tab.ER PO ONE (09:00)
[2021-04-19] MEDS: Levothyroxine 100 MCG Tab PO SCH (09:20)
[2021-04-19] MEDS: Carvedilol 3.125 MG Tab PO SCH (09:20)
--- NOTE | 2021-04-19 14:22 | PCM.DCSUM1 ---
Discharge Summary - Hospital Course Brief History: 75-year-old female with history of hypertension who presented with increasing cough, weakness and shortness of breath. She was admitted for management of COVID-19 pneumonia with acute respiratory failure and hypoxia. Diagnosis: Stroke: No - Discharge Data Discharge Date: 04/19/21 Discharge Disposition: Home, Self-Care 01 Condition: Fair - Referral to Home Health Primary Care Physician: Harry Nowak NP - Discharge Diagnosis/Problem(s) (1) Pneumonia due to COVID-19 virus SNOMED Code(s): 322647871742814017 ICD Code: U07.1 - COVID-19; J12.82 - PNEUMONIA DUE TO CORONAVIRUS DISEASE 2018 Status: Acute Current Visit: Yes (2) Acute respiratory failure SNOMED Code(s): 27088601 ICD Code: J96.00 - ACUTE RESPIRATORY FAILURE, UNSP W HYPOXIA OR HYPERCAPNIA Status: Acute Current Visit: Yes Qualifiers: Respiratory failure complication: hypoxia Qualified Code(s): J96.01 - Acute respiratory failure with hypoxia (3) Hypokalemia SNOMED Code(s): 08236671 ICD Code: E87.6 - HYPOKALEMIA Status: Acute Current Visit: Yes - Patient Summary/Data Consults: Consultations 04/17/21 13:43 Consult to Physical Therapy [PT Evaluation and Treatment] [CONS] Routine Please Evaluate and Treat. PT Reason for Consult: Weakness, COVID-19 infection This query below is only for informational purposes and is not editable. Admission Diagnosis/Problem: Hypoxia Hospital Course: Tasia presented to the emergency room with progressive cough, shortness of breath and weakness. Work-up in the emergency room revealed evidence for hypoxia as well as a Covid pneumonia. She had a moderate elevation of CRP and D-dimer. She was started on dexamethasone, remdesivir as well as enoxaparin. Over the next couple of days we saw steady improvement in her respiratory status and symptoms. We have been able to wean her off of the supplemental oxygen. She has completed 4 days of remdesivir and steroids. Strength and appetite have been acceptable. She feels well enough to go home. She is no longer requiring supplemental oxygen I think this is a safe plan at this time. I did recommend a couple of additional days of steroids given some elevation of her CRP yet. Her D-dimer has improved dramatically and the plan is for aspirin for DVT/clot prophylaxis. She has multiple family members that we will be able to assist in her care after discharge home. She is stable and safe for discharge home at this time without oxygen. - Patient Instructions Diet: Regular Diet as Tolerated Activity: As Tolerated Showering/Bathing: May Shower Notify Provider of: Fever Other/Special Instructions: 1. You were in the hospital for management of pneumonia caused by COVID-19. This was complicated by hypoxic respiratory failure requiring supplemental oxygen use. Your condition has been improving with medications provided here in the hospital as well as supportive care with supplemental oxygen. We have been able to wean you off of the supplemental oxygen. I do recommend additional treatment with dexamethasone after hospital discharge. This is a steroid that helps reduce inflammation in your lungs. Please take 6 mg once daily at about 4 PM on both Sunday and . This will complete the steroid treatment. You may increase your activity as tolerated but should avoid strenuous activities. I would encourage you to take an aspirin 81 mg tablet once daily for at least the next 2 weeks and preferably for the next month. This will help to keep your platelets slippery and reduce the risk of blood clots following the Covid infection. You had what we would classify as mild illness and you are more than 10 days out from symptom onset so you no longer need to quarantine. 2. Continue your usual home medications as previously prescribed. 3. Follow up with your primary care provider next week to ensure that you continue to improve after the hospital stay - Discharge Plan *PRESCRIPTION DRUG MONITORING PROGRAM REVIEWED*: Not Applicable *COPY OF PRESCRIPTION DRUG MONITORING REPORT IN PATIENT TROY: Not Applicable Prescriptions/Med Rec: dexAMETHasone [Dexamethasone] 6 mg PO Q24H #6 tab Home Medications: Home Meds carvediloL [Coreg] 6.25 mg PO BID 01/23/19 [History] Levothyroxine Sodium [Levothyroxine] 100 mcg PO DAILY 07/15/20 [History] dexAMETHasone [Dexamethasone] 6 mg PO Q24H #6 tab 04/19/21 [Rx] Oxygen Therapy Mode: Room Air Patient Handouts: Hypoxia, Fall Prevention in the Home, Adult, [id number], COVID-19 Referrals: Harry Nowak NP [Primary Care Provider] - 04/27/21 1:45 pm ([place] [facility] 15 minutes prior to appointment, [facility]) - Discharge Summary/Plan Comment DC Time >30 min.: No Total # of Minutes for Discharge Time: 25 - Patient Data Vitals - Most Recent: Last Vital Signs Temp 36.1 C 04/19/21 10:41 Pulse 65 04/19/21 10:41 Resp 18 04/19/21 10:41 BP 115/58 L 04/19/21 10:41 Pulse Ox 89 L 04/19/21 13:12 Weight - Most Recent: 73.618 kg I&O - Last 24 hours: Intake & Output 04/18/21 04/19/21 04/19/21 22:59 06:59 14:59 Intake Total 420 100 120 Balance 420 100 120 Lab Results - Last 24 hrs: Laboratory Results - last 24 hr 04/19/21 04/19/21 04/19/21 Range/Units 04:25 04:25 04:25 WBC 7.2 (4.5-11.0) K/uL RBC 4.41 (3.30-5.50) M/uL Hgb 12.3 (12.0-15.0) g/dL Hct 38.6 (36.0-48.0) % MCV 88 (80-98) fL MCH 28 (27-31) pg MCHC 32 (32-36) % Plt Count 254 (150-400) K/uL D-Dimer, Quantitative 912.68 H (0.0-500.0) ng/mL Sodium 143 (140-148) mmol/L Potassium 3.4 L (3.6-5.2) mmol/L Chloride 104 (100-108) mmol/L Carbon Dioxide 32 (21-32) mmol/L Anion Gap 10.4 (5.0-14.0) mmol/L BUN 33 H (7-18) mg/dL Creatinine 1.0 (0.6-1.0) mg/dL Est Cr Clr Drug Dosing 37.26 mL/min Estimated GFR (MDRD) 54 L (>60) Glucose 170 H (74-106) mg/dL Calcium 8.2 L (8.5-10.1) mg/dL Total Bilirubin 0.2 (0.2-1.0) mg/dL AST 38 H (15-37) U/L ALT 44 (12-78) U/L Alkaline Phosphatase 39 L (46-116) U/L C-Reactive Protein 3.12 H (0.0-0.3) mg/dL Total Protein 6.2 L (6.4-8.2) g/dL Albumin 2.4 L (3.4-5.0) g/dL Globulin 3.8 H (2.3-3.5) g/dL Albumin/Globulin Ratio 0.6 L (1.2-2.2) Med Orders - Current: Current Medications Acetaminophen (Acetaminophen 325 Mg Tab) 650 mg PO Q4H PRN PRN Reason: Pain (Mild 1-3)/fever Last Admin: 04/18/21 23:18 Dose: 650 mg Documented by: Benzonatate (Benzonatate 100 Mg Cap) 100 mg PO Q8H PRN PRN Reason: Cough Last Admin: 04/18/21 17:26 Dose: 100 mg Documented by: Carvedilol (Carvedilol 3.125 Mg Tab) 3.125 mg PO BIDMEALS [facility] Dexamethasone (Dexamethasone 4 Mg/Ml Sdv) 6 mg IVPUSH Q24H [facility] Last Admin: 04/18/21 17:29 Dose: 6 mg Documented by: Enoxaparin Sodium (Enoxaparin 40 Mg/0.4 Ml Syringe) 40 mg SUBCUT BEDTIME [facility] Last Admin: 04/18/21 20:19 Dose: 40 mg Documented by: Remdesivir 100 mg/ Sodium (Chloride) 100 mls @ 100 mls/hr IV Q24H [facility] Stop: 04/20/21 18:59 Last Admin: 04/18/21 17:26 Dose: 100 mls/hr Documented by: Levothyroxine Sodium (Levothyroxine 100 Mcg Tab) 100 mcg PO ACBREAKFAST [facility] Last Admin: 04/19/21 09:20 Dose: 100 mcg Documented by: Melatonin (Melatonin 3 Mg Tab) 9 mg PO BEDTIME PRN PRN Reason: Insomnia Last Admin: 04/18/21 23:18 Dose: 9 mg Documented by: Ondansetron HCl (Ondansetron 4 Mg/2 Ml Sdv) 4 mg IV Q4H PRN PRN Reason: Nausea/Vomiting Last Admin: 04/16/21 19:38 Dose: 4 mg Documented by: Polyethylene Glycol (Polyethylene Glycol 3350 Powder 17 Gm Packet) 17 gm PO DAILY PRN PRN Reason: Constipation Sodium Chloride (Sodium Chloride 0.9% 10 Ml Syringe) 10 ml FLUSH ASDIRECTED PRN PRN Reason: Keep Vein Open Discontinued Medications Carvedilol (Carvedilol 3.125 Mg Tab) 6.25 mg PO BIDMEALS [facility] Last Admin: 04/19/21 09:20 Dose: Not Given Documented by: Remdesivir 200 mg/ Sodium (Chloride) 250 mls @ 250 mls/hr IV ONETIME ONE Stop: 04/16/21 17:33 Last Admin: 04/16/21 19:38 Dose: 250 mls/hr Documented by: Potassium Chloride (Potassium Chloride 20 Meq Tab.Er) 40 meq PO ONETIME ONE Stop: 04/19/21 09:01 Sodium Chloride (Sodium Chloride 0.9% 10 Ml Syringe) 10 ml FLUSH ASDIRECTED PRN PRN Reason: Keep Vein Open Last Admin: 04/16/21 16:44 Dose: 10 ml Documented by:
[2021-04-19] MEDS ORDERED: Dexamethasone 2 MG Tab PO ONE (15:15)
[2021-04-19] MEDS: Acetaminophen 325 MG Tab PO PRN (16:08)
[2021-04-19] MEDS ORDERED: Carvedilol 3.125 MG Tab PO SCH (17:00)
== END 2021-04-19 16:30 | disposition home or self-care (01) | DRG 177 ==
LOC: JP.ED 15:09 → JP.2SS 17:51
PROVIDERS: ADMIT Hospitalist; ATTEND Internal Medicine
PROC: 8E0ZXY6 Isolation (ICD-10-PCS; principal; 2021-04-16)
PROC: XW033E5 Introduction of Remdesivir Anti-infective into Peripheral Vein, Percutaneous Approach, New Technology Group 5 (ICD-10-PCS; 2021-04-16)
PROC: 3E0333Z Introduction of Anti-inflammatory into Peripheral Vein, Percutaneous Approach (ICD-10-PCS; 2021-04-16)
PROC: 3E0DX3Z Introduction of Anti-inflammatory into Mouth and Pharynx, External Approach (ICD-10-PCS; 2021-04-19)
DX: U07.1 COVID-19 (principal); R09.02 Hypoxemia; J12.82 Pneumonia due to coronavirus disease 2019; H35.30 Unspecified macular degeneration; J96.01 Acute respiratory failure with hypoxia; I10 Essential (primary) hypertension; E87.6 Hypokalemia; H54.7 Unspecified visual loss; K21.9 Gastro-esophageal reflux disease without esophagitis; M19.90 Unspecified osteoarthritis, unspecified site; F41.0 Panic disorder [episodic paroxysmal anxiety]; F32.A Depression, unspecified; E03.9 Hypothyroidism, unspecified; Z79.899 Other long term (current) drug therapy; D64.9 Anemia, unspecified; Z88.8 Allergy status to other drugs, medicaments and biological substances; Z79.890 Hormone replacement therapy; Z90.49 Acquired absence of other specified parts of digestive tract
CPT/HCPCS: 36415; 71046; 80048; 80053; 80076; 81001; 85025; 85027; 85379; 86140; 94762; 97162-GP; 97530-GP; 99285-25; A9270-GY; J1100; J1650; J2405; J7050; J8540